=== PATIENT | female | born 1970 | race Caucasian/White ===

== ENCOUNTER → 2016-04-09 | Outpatient (CLI) | payer BC ==
[2016-04-09 14:10] LABS: Basophils # (auto) 0 uL; Basophils % (auto) 0.4 % (0.0-2.0); DEFINITIVE VIEW TRANSMISSION; Eosinophils # (auto) 0 uL; Hematocrit 40.3 % (36.0-46.0); Hemoglobin 12.3 g/dL (12.2-16.2); Lymphocytes # (auto) 0.7 uL; Lymphocytes % (auto) 7.3 % (10.0-50.0); Mean Corpuscular Hemoglobin 24.2 pg (28.0-32.0); Mean Corpuscular Hgb Conc. 30.5 g/dL (32.0-36.0); Mean Corpuscular Volume 79.5 fL (80.0-100.0); Mean Platelet Volume 8.4 fL (7.4-10.4); Monocytes # (auto) 0.3 uL; Monocytes % (auto) 2.6 % (0.0-12.0); Neutrophils # (auto) 8.8 uL; Neutrophils % (auto) 89.7 % (37.0-80.0); Platelet Count (auto) 390 10^3/uL (140-450); Red Cell Distribution Width 18.3 % (11.6-16.0); White Blood Cell 9.8 10^3/uL (4.4-10.8)
== END | disposition home or self-care (01) ==
LOC: LAB 13:34
PROVIDERS: ATTEND Internal Medicine
DX: C64.9 Malignant neoplasm of unspecified kidney, except renal pelvis (principal); D50.9 Iron deficiency anemia, unspecified; J45.909 Unspecified asthma, uncomplicated
CPT/HCPCS: 36415; 83540; 83550; 85025

== ENCOUNTER → 2016-09-17 | Outpatient (CLI) | payer BC ==
[2016-09-17 13:16] LABS: Basophils # (auto) 0 uL; Basophils % (auto) 0.5 % (0.0-2.0); CONDITION Y; DEFINITIVE SEE PRINTOUT; Eosinophils # (auto) 0.2 uL; Hemoglobin 11.4 g/dL (12.2-16.2); Lymphocytes # (auto) 1.2 uL; Lymphocytes % (auto) 18.7 % (10.0-50.0); Mean Corpuscular Hemoglobin 24.6 pg (28.0-32.0); Mean Corpuscular Hgb Conc. 31.8 g/dL (32.0-36.0); Mean Corpuscular Volume 77.3 fL (80.0-100.0); Mean Platelet Volume 8.4 fL (7.4-10.4); Monocytes # (auto) 0.7 uL; Monocytes % (auto) 10.8 % (0.0-12.0); Neutrophils # (auto) 4.3 uL; Platelet Count (auto) 302 10^3/uL (140-450); White Blood Cell 6.4 10^3/uL (4.4-10.8)
[2016-09-17 13:59] LABS: Albumin 3.8 g/dL (3.4-5.0); BUN/Creatinine Ratio 12.1; Bilirubin, Total 0.3 mg/dL (0.2-1.0); Calcium 8.7 mg/dL (8.5-10.1); Total Protein 8.3 g/dL (6.4-8.2)
== END | disposition home or self-care (01) ==
LOC: LAB 12:39
PROVIDERS: ATTEND Internal Medicine
DX: R63.5 Abnormal weight gain (principal); D50.9 Iron deficiency anemia, unspecified
CPT/HCPCS: 36415; 80053; 82728; 83001; 83036; 83540; 83550; 83615; 84439; 84443; 85025

== ENCOUNTER → 2019-07-14 | Outpatient (CLI) | payer BC ==
[2019-07-14 09:14] LABS: Basophils # (auto) 0 10 ^3/uL (0-0.2); Eosinophils # (auto) 0.1 10 ^3/uL (0-0.8); Eosinophils % (auto) 2.4 % (0.0-7.0); Hemoglobin 9.9 g/dL (12.2-16.2); Monocytes # (auto) 0.4 10 ^3/uL (0-1.3); White Blood Cell 5.5 10^3/uL (4.4-10.8)
[2019-07-14 09:16] LABS: Basophils % (auto) 0.7 % (0.0-2.0); Hematocrit 32.4 % (36.0-46.0); Lymphocytes # (auto) 0.9 10 ^3/uL (0.4-5.4); Lymphocytes % (auto) 17.2 % (10.0-50.0); Mean Corpuscular Hgb Conc. 30.4 g/dL (32.0-36.0); Mean Corpuscular Volume 69.3 fL (80.0-100.0); Monocytes % (auto) 7.9 % (0.0-12.0); Neutrophils # (auto) 3.9 10 ^3/uL (1.6-8.6); Neutrophils % (auto) 71.8 % (37.0-80.0); Platelet Count (auto) 203 10^3/uL (140-450); Red Blood Cells 4.68 10^6/uL (4.0-5.20); Red Cell Distribution Width 18.5 % (11.8-14.3)
[2019-07-14 09:22] LABS: Albumin 3.7 g/dL (3.4-5.0); Calcium 9.2 mg/dL (8.5-10.1); Potassium 3.6 mmol/L (3.5-5.1)
[2019-07-14 09:26] LABS: Urine Bacteria FEW /hpf (None Seen); Urine Blood Negative /uL (Negative); Urine Specific Gravity 1.012 (1.001-1.035); Urine WBC 1 /hpf (0 - 5)
[2019-07-14 09:29] LABS: BUN/Creatinine Ratio 12.3; Bilirubin, Total 0.7 mg/dL (0.2-1.0); Total Protein 8.4 g/dL (6.4-8.2)
== END | disposition home or self-care (01) ==
LOC: LAB 07:42
PROVIDERS: ATTEND Internal Medicine
DX: J45.998 Other asthma (principal); F32.9 Major depressive disorder, single episode, unspecified
CPT/HCPCS: 36415; 80053; 80061; 81001; 84439; 84443; 85025; 85652

== ENCOUNTER → 2019-08-31 | Outpatient (CLI) | payer BC | END | disposition home or self-care (01) | LOC: LAB 12:41 | PROVIDERS: ATTEND Internal Medicine | DX: Z20.828 Contact with and (suspected) exposure to other viral communicable diseases (principal) | CPT/HCPCS: 87635 ==

== ENCOUNTER → 2021-10-17 | Outpatient (CLI) | payer BC ==
[2021-10-17 13:21] LABS: Basophils # (auto) 0 10 ^3/uL (0-0.2); Eosinophils # (auto) 0.2 10 ^3/uL (0-0.8); Eosinophils % (auto) 2.5 % (0.0-7.0); Hemoglobin 8.2 g/dL (12.2-16.2); Lymphocytes # (auto) 1.2 10 ^3/uL (0.4-5.4); Mean Corpuscular Hgb Conc. 29.1 g/dL (32.0-36.0); Monocytes # (auto) 0.5 10 ^3/uL (0-1.3)
[2021-10-17 13:24] LABS: Basophils % (auto) 0.5 % (0.0-2.0); Lymphocytes % (auto) 20.3 % (10.0-50.0); Mean Corpuscular Hemoglobin 18.1 pg (28.0-32.0); Monocytes % (auto) 8.2 % (0.0-12.0); Neutrophils # (auto) 4.2 10 ^3/uL (1.6-8.6); Neutrophils % (auto) 68.5 % (37.0-80.0); Nucleated Red Blood Cells % 0.1 %; Red Blood Cells 4.51 10^6/uL (4.0-5.20); Red Cell Distribution Width 18.4 % (11.8-14.3); White Blood Cell 6.1 10^3/uL (4.4-10.8)
[2021-10-17 15:26] LABS: % Iron Saturation 3.2 % (15-50)
== END | disposition home or self-care (01) ==
LOC: LAB 11:51
PROVIDERS: ATTEND Internal Medicine
DX: D64.9 Anemia, unspecified (principal); R73.01 Impaired fasting glucose
CPT/HCPCS: 36415; 82607; 83036; 83540; 83550; 83615; 85025

== ENCOUNTER → 2021-12-25 | Outpatient (CLI) | payer BC | END | disposition home or self-care (01) | LOC: LAB 12:59 | PROVIDERS: ATTEND Nurse Practitioner Family | DX: N39.0 Urinary tract infection, site not specified (principal) | CPT/HCPCS: 87086 ==

== ENCOUNTER 2022-03-02 12:21 | Day surgery (SDC) | payer BC ==
[2022-02-28 09:09] LABS: Eosinophils # (auto) 0.2 10 ^3/uL (0-0.8); Mean Corpuscular Hemoglobin 18.2 pg (28.0-32.0); Mean Corpuscular Hgb Conc. 29.7 g/dL (32.0-36.0); Monocytes # (auto) 0.5 10 ^3/uL (0-1.3); Monocytes % (auto) 6.8 % (0.0-12.0); Neutrophils # (auto) 5.6 10 ^3/uL (1.6-8.6)
[2022-02-28 09:11] LABS: Basophils # (auto) 0 10 ^3/uL (0-0.2); Basophils % (auto) 0.7 % (0.0-2.0); Eosinophils % (auto) 2.1 % (0.0-7.0); Hematocrit 27.3 % (36.0-46.0); Hemoglobin 8.1 g/dL (12.2-16.2); Lymphocytes # (auto) 1.2 10 ^3/uL (0.4-5.4); Lymphocytes % (auto) 15.5 % (10.0-50.0); Mean Corpuscular Volume 61.2 fL (80.0-100.0); Neutrophils % (auto) 74.9 % (37.0-80.0); Red Blood Cells 4.46 10^6/uL (4.0-5.20); Red Cell Distribution Width 19.2 % (11.8-14.3); White Blood Cell 7.4 10^3/uL (4.4-10.8)
[2022-02-28 09:29] LABS: Albumin 3.9 g/dL (3.4-5.0); Calcium 9.2 mg/dL (8.5-10.1); Potassium 4.3 mmol/L (3.5-5.1)
[2022-02-28 09:32] LABS: INR 0.97 (0.9-1.15); Partial Thromboplastin Time 25.6 sec (24.6-33.4)
[2022-02-28 09:33] LABS: BUN/Creatinine Ratio 12.8; Bilirubin, Total 0.5 mg/dL (0.2-1.0)
[~2022-03-02] VITALS: Ht 175.3 cm; Wt 136.1 kg
[~2022-03-02 12:21] MED LIST: OME20GT PO; QUET50TA5 PO; VALS40TA2 PO
[2022-03-02] MEDS ORDERED: LIDOCAINE VISCOUS 2% 15ML UD ONE (12:34)
[2022-03-02] MEDS ORDERED: diphenhdrAMINE HCL 50 MG/1 ML VL ONE (12:34)
[2022-03-02] MEDS ORDERED: fentaNYL CITRATE 100 MCG/2 ML VL ONE (12:35)
[2022-03-02] MEDS ORDERED: MIDAZOLAM HCL 2MG/2ML 2ml VIAL (1mg/ml) ONE ×2 (12:35→12:47)
[2022-03-02] MEDS ORDERED: SODIUM CHLORIDE LOCK 0 ML ONE (12:36)
[2022-03-02] MEDS ORDERED: PROPOFOL 10 MG/ML 20 ML IV ONE ×3 (13:42→13:58)
[2022-03-02] MEDS ORDERED: LIDOCAINE 2%HCL (LOCAL ANESTH.) INJ 10ml MDV ONE (13:42)
[2022-03-02 14:35] VITALS: BP 120/91
== END 2022-03-02 14:46 | disposition home or self-care (01) ==
LOC: GI 12:21
PROVIDERS: ATTEND Internal Medicine Gastroenterology
DX: K21.9 Gastro-esophageal reflux disease without esophagitis (principal); D50.9 Iron deficiency anemia, unspecified; R10.13 Epigastric pain; K44.9 Diaphragmatic hernia without obstruction or gangrene; K31.7 Polyp of stomach and duodenum; K29.50 Unspecified chronic gastritis without bleeding; J45.909 Unspecified asthma, uncomplicated; F41.9 Anxiety disorder, unspecified; F32.9 Major depressive disorder, single episode, unspecified; Z98.890 Other specified postprocedural states; Z20.822 Contact with and (suspected) exposure to COVID-19
CPT/HCPCS: 36415; 43239; 80053; 85025; 85610; 85730; J2001; J2704; J7030; U0003; J2250

== ENCOUNTER → 2022-04-13 | Day surgery (SDC) | payer BC ==
[2022-04-11 09:52] LABS: Basophils # (auto) 0.1 10 ^3/uL (0-0.2); Eosinophils # (auto) 0.2 10 ^3/uL (0-0.8)
[2022-04-11 09:54] LABS: Basophils % (auto) 0.8 % (0.0-2.0); Hematocrit 27.6 % (36.0-46.0); Hemoglobin 8.2 g/dL (12.2-16.2); Lymphocytes # (auto) 1.3 10 ^3/uL (0.4-5.4); Lymphocytes % (auto) 19.5 % (10.0-50.0); Mean Corpuscular Hemoglobin 18.1 pg (28.0-32.0); Mean Corpuscular Hgb Conc. 29.9 g/dL (32.0-36.0); Mean Corpuscular Volume 60.5 fL (80.0-100.0); Monocytes # (auto) 0.7 10 ^3/uL (0-1.3); Monocytes % (auto) 9.5 % (0.0-12.0); Neutrophils # (auto) 4.6 10 ^3/uL (1.6-8.6); Neutrophils % (auto) 67.2 % (37.0-80.0); Nucleated Red Blood Cells % 0.1 %; Red Blood Cells 4.56 10^6/uL (4.0-5.20); White Blood Cell 6.9 10^3/uL (4.4-10.8)
[2022-04-11 10:06] LABS: INR 0.97 (0.9-1.15); Partial Thromboplastin Time 24.9 sec (24.6-33.4)
[2022-04-11 10:28] LABS: Albumin 3.7 g/dL (3.4-5.0); Calcium 9.1 mg/dL (8.5-10.1); Potassium 3.9 mmol/L (3.5-5.1)
[2022-04-11 10:31] LABS: BUN/Creatinine Ratio 15.6; Bilirubin, Total 0.5 mg/dL (0.2-1.0); Total Protein 8.2 g/dL (6.4-8.2)
[2022-04-11 10:37] LABS: Urine Bacteria FEW /hpf (None Seen); Urine Blood Negative /uL (Negative); Urine Specific Gravity 1.009 (1.001-1.035); Urine WBC 3 /hpf (0 - 5)
[~2022-04-13] VITALS: Ht 175.3 cm; Wt 136.1 kg
[~2022-04-13] MED LIST changes: +ALBUAER3 IN; +FLUT250M2 IN; +MEPERIDINE HCL (25 MG/ML) 1ML VIAL ONE; +MIDAZOLAM HCL 2MG/2ML 2ml VIAL (1mg/ml) ONE; +ONDANSETRON HCL 4 MG/2 ML VIAL IV PRN; +PANT40TA2 PO; +PROPOFOL 10 MG/ML 20 ML IV ONE; +fentaNYL CITRATE 100 MCG/2 ML VL ONE
[2022-04-13 11:36] VITALS: BP 110/51
== END | disposition home or self-care (01) ==
LOC: GI 09:25
PROVIDERS: ATTEND Internal Medicine Gastroenterology
DX: D50.9 Iron deficiency anemia, unspecified (principal); K62.1 Rectal polyp; K63.5 Polyp of colon; K64.8 Other hemorrhoids; K57.30 Diverticulosis of large intestine without perforation or abscess without bleeding; K59.39 Other megacolon; D64.9 Anemia, unspecified; K21.9 Gastro-esophageal reflux disease without esophagitis; E66.9 Obesity, unspecified; Z68.41 Body mass index [BMI] 40.0-44.9, adult; F32.A Depression, unspecified; J45.909 Unspecified asthma, uncomplicated; Z88.0 Allergy status to penicillin; Z91.040 Latex allergy status; Z85.528 Personal history of other malignant neoplasm of kidney; Z98.51 Tubal ligation status; Z79.899 Other long term (current) drug therapy; Z98.890 Other specified postprocedural states; Z20.822 Contact with and (suspected) exposure to COVID-19
CPT/HCPCS: 36415; 45380; 80053; 81001; 85025; 85610; 85730; 88305; J2175; J2250; J2704; J3010; J7030; U0003

== ENCOUNTER → 2022-06-07 | Outpatient (CLI) | payer BC ==
[~2022-06-07] MED LIST changes: -MEPERIDINE HCL (25 MG/ML) 1ML VIAL ONE; -MIDAZOLAM HCL 2MG/2ML 2ml VIAL (1mg/ml) ONE; -ONDANSETRON HCL 4 MG/2 ML VIAL IV PRN; -PROPOFOL 10 MG/ML 20 ML IV ONE; -fentaNYL CITRATE 100 MCG/2 ML VL ONE
[2022-06-07 13:45] LABS: Hemoglobin 11.9 g/dL (12.2-16.2); White Blood Cell 7.5 10^3/uL (4.4-10.8)
[2022-06-07 13:47] LABS: Basophils # (auto) 0.1 10 ^3/uL (0-0.2); Basophils % (auto) 1.2 % (0.0-2.0); Eosinophils # (auto) 0.2 10 ^3/uL (0-0.8); Eosinophils % (auto) 2.8 % (0.0-7.0); Hematocrit 37.8 % (36.0-46.0); Lymphocytes # (auto) 1.4 10 ^3/uL (0.4-5.4); Lymphocytes % (auto) 18.1 % (10.0-50.0); Mean Corpuscular Hemoglobin 23.4 pg (28.0-32.0); Mean Corpuscular Hgb Conc. 31.5 g/dL (32.0-36.0); Mean Corpuscular Volume 74.1 fL (80.0-100.0); Monocytes # (auto) 0.7 10 ^3/uL (0-1.3); Monocytes % (auto) 8.9 % (0.0-12.0); Neutrophils # (auto) 5.2 10 ^3/uL (1.6-8.6); Nucleated Red Blood Cells % 0.2 %
[2022-06-07 14:01] LABS: Red Cell Distribution Width 31.5 % (11.8-14.3)
[2022-06-07 14:08] LABS: Albumin 3.7 g/dL (3.4-5.0); Calcium 9.3 mg/dL (8.5-10.1); Potassium 3.9 mmol/L (3.5-5.1)
[2022-06-07 14:13] LABS: BUN/Creatinine Ratio 11.1 (10.0-20.0); Bilirubin, Total 0.5 mg/dL (0.2-1.0); Total Protein 7.8 g/dL (6.4-8.2)
[2022-06-07 14:18] LABS: Ferritin 145.7 ng/mL (10-322); Folate (Folic Acid) 13.15 ng/mL (5.38-24)
== END | disposition home or self-care (01) ==
LOC: LAB 13:12
PROVIDERS: ATTEND Internal Medicine
DX: D50.0 Iron deficiency anemia secondary to blood loss (chronic) (principal); Z88.0 Allergy status to penicillin
CPT/HCPCS: 36415; 80053; 82607; 82728; 82746; 83540; 83550; 83615; 85025

== ENCOUNTER → 2023-03-19 | Outpatient (CLI) | payer BC ==
[2023-03-19 08:07] LABS: Basophils # (auto) 0 10 ^3/uL (0-0.2); Basophils % (auto) 0.8 % (0.0-2.0); Eosinophils # (auto) 0.1 10 ^3/uL (0-0.8); Eosinophils % (auto) 2.6 % (0.0-7.0); Hematocrit 41.7 % (36.0-46.0); Hemoglobin 13.6 g/dL (12.2-16.2); Lymphocytes # (auto) 0.8 10 ^3/uL (0.4-5.4); Mean Corpuscular Hemoglobin 29.1 pg (28.0-32.0); Mean Corpuscular Hgb Conc. 32.7 g/dL (32.0-36.0); Mean Corpuscular Volume 88.9 fL (80.0-100.0); Monocytes # (auto) 0.5 10 ^3/uL (0-1.3); Monocytes % (auto) 9.8 % (0.0-12.0); Neutrophils % (auto) 71.8 % (37.0-80.0); Nucleated Red Blood Cells % 0.1 %; Red Cell Distribution Width 16.3 % (11.8-14.3); White Blood Cell 5.6 10^3/uL (4.4-10.8)
[2023-03-19 08:34] LABS: Creatinine, Urine 97.39 mg/dL (30.0-125.0)
[2023-03-19 08:35] LABS: Alanine Aminotransferase 105 U/L (7-40); Albumin 4.7 g/dL (3.2-4.8); Alkaline Phosphatase 88 U/L (46-116); Calcium 9.8 mg/dL (8.5-10.1); Carbon Dioxide 26 mmol/L (20-30); Chloride 104 mmol/L (98-107); Triglycerides 159 mg/dL (< 150)
[2023-03-19 08:36] LABS: Anion Gap 8 (5-15); Aspartate Aminotransferase 104 U/L (13-40); Bilirubin, Total 1.4 mg/dL (0.2-1.0); Blood Urea Nitrogen 7 mg/dL (9-23); Cholesterol 208 mg/dL (< 200); Glucose 124 mg/dL (74-106); HDL Cholesterol 42 mg/dL (40-59); LDL Cholesterol 151 mg/dL (< 100); Potassium 4.4 mmol/L (3.5-5.1); Sodium 138 mmol/L (136-145); Total Protein 7.9 g/dL (5.7-8.2)
== END | disposition home or self-care (01) ==
LOC: LAB 07:47
PROVIDERS: ATTEND Internal Medicine
DX: N18.30 Chronic kidney disease, stage 3 unspecified (principal); D64.9 Anemia, unspecified; R73.03 Prediabetes
CPT/HCPCS: 36415; 80053; 80061; 82043; 82570; 83036; 84443; 85025

== ENCOUNTER → 2023-03-22 | Outpatient (CLI) | payer BC ==
[2023-03-22 09:02] LABS: Albumin 4.9 g/dL (3.2-4.8); Bilirubin, Direct 0.4 mg/dL (<0.3); Bilirubin, Total 0.8 mg/dL (0.2-1.0)
[2023-03-22 09:03] LABS: Total Protein 8.1 g/dL (5.7-8.2)
== END | disposition home or self-care (01) ==
LOC: LAB 08:24
PROVIDERS: ATTEND Internal Medicine
DX: R79.89 Other specified abnormal findings of blood chemistry (principal)
CPT/HCPCS: 36415; 80074; 80076

== ENCOUNTER → 2023-10-16 | Outpatient (CLI) | payer BC | END | disposition home or self-care (01) | LOC: XYW 08:59 | PROVIDERS: ATTEND Internal Medicine | DX: I51.89 Other ill-defined heart diseases (principal); R60.0 Localized edema | CPT/HCPCS: 93306 ==

== ENCOUNTER → 2024-04-09 | Outpatient (CLI) | payer BC ==
[2024-04-09 08:48] LABS: Basophils # (auto) 0 10 ^3/uL (0-0.2); Basophils % (auto) 0.8 % (0.0-2.0); Eosinophils # (auto) 0.1 10 ^3/uL (0-0.8); Eosinophils % (auto) 2.5 % (0.0-7.0); Hematocrit 34.3 % (36.0-46.0); Hemoglobin 11.3 g/dL (12.2-16.2); Lymphocytes # (auto) 0.8 10 ^3/uL (0.4-5.4); Lymphocytes % (auto) 16.7 % (10.0-50.0); Mean Corpuscular Hemoglobin 30.5 pg (28.0-32.0); Mean Corpuscular Volume 92.5 fL (80.0-100.0); Monocytes # (auto) 0.5 10 ^3/uL (0-1.3); Monocytes % (auto) 9.6 % (0.0-12.0); Neutrophils # (auto) 3.4 10 ^3/uL (1.6-8.6); Neutrophils % (auto) 70.4 % (37.0-80.0); Nucleated Red Blood Cells % 0.1 %; Platelet Count (auto) 201 10^3/uL (140-450); Red Blood Cells 3.71 10^6/uL (4.0-5.20); Red Cell Distribution Width 15.5 % (11.8-14.3); White Blood Cell 4.9 10^3/uL (4.4-10.8)
[2024-04-09 09:39] LABS: Creatinine, Urine 78.01 mg/dL (30.0-125.0)
[2024-04-09 11:30] LABS: Alanine Aminotransferase 37 U/L (7-40); Alkaline Phosphatase 114 U/L (46-116); Anion Gap 11 (5-15); BUN/Creatinine Ratio 7.6 (10.0-20.0); Calcium 10.3 mg/dL (8.7-10.4); Carbon Dioxide 26 mmol/L (20-31); Chloride 100 mmol/L (98-107); Potassium 3.9 mmol/L (3.5-5.1); Sodium 137 mmol/L (136-145)
[2024-04-09 11:31] LABS: Blood Urea Nitrogen 8 mg/dL (9-23); Glucose 137 mg/dL (74-106)
[2024-04-09 11:32] LABS: Albumin 4.8 g/dL (3.2-4.8)
[2024-04-09 11:47] LABS: Aspartate Aminotransferase 68 U/L (13-40); Bilirubin, Total 2.1 mg/dL (0.2-1.0)
[2024-04-09 13:01] LABS: Cholesterol 239 mg/dL (< 200); HDL Cholesterol 28 mg/dL (40-59); LDL Cholesterol 195 mg/dL (< 100); Triglycerides 190 mg/dL (< 150)
== END | disposition home or self-care (01) ==
LOC: LAB 08:19
PROVIDERS: ATTEND Internal Medicine
DX: E78.5 Hyperlipidemia, unspecified (principal); R06.02 Shortness of breath; L03.116 Cellulitis of left lower limb; R73.03 Prediabetes
CPT/HCPCS: 36415; 80053; 80061; 82043; 82306; 82570; 82607; 83036; 83880; 85025; 85379

== ENCOUNTER → 2024-04-15 | Outpatient (CLI) | payer BC ==
[2024-04-15 09:26] LABS: Alkaline Phosphatase 110 U/L (46-116); Anion Gap 12 (5-15); BUN/Creatinine Ratio 12.3 (10.0-20.0); Blood Urea Nitrogen 16 mg/dL (9-23); Carbon Dioxide 26 mmol/L (20-31); Potassium 4.1 mmol/L (3.5-5.1)
[2024-04-15 09:27] LABS: Total Protein 8.2 g/dL (5.7-8.2)
[2024-04-15 09:34] LABS: Alanine Aminotransferase 40 U/L (7-40); Albumin 4.9 g/dL (3.2-4.8); Aspartate Aminotransferase 94 U/L (13-40); Bilirubin, Total 1.3 mg/dL (0.2-1.0); Calcium 10.4 mg/dL (8.7-10.4); Chloride 97 mmol/L (98-107); Glucose 139 mg/dL (74-106); Sodium 135 mmol/L (136-145)
== END | disposition home or self-care (01) ==
LOC: LAB 08:33
PROVIDERS: ATTEND Internal Medicine
DX: R79.89 Other specified abnormal findings of blood chemistry (principal)
CPT/HCPCS: 36415; 80053

== ENCOUNTER → 2024-06-17 | Outpatient (CLI) | payer BC | END | disposition home or self-care (01) | LOC: LAB 14:30 | PROVIDERS: ATTEND Internal Medicine | DX: R06.02 Shortness of breath (principal); R60.0 Localized edema | CPT/HCPCS: 83880 ==

== ENCOUNTER 2024-09-15 07:03 | Outpatient (CLI) | payer BC ==
[~2024-09-15] VITALS: Ht 175.3 cm; Wt 149.7 kg
[2024-09-15] MEDS: REGADENOSON 0.4 MG/5 ML SYRG IV ONE ×2 (09:48→09:55)
--- NOTE | 2024-09-17 10:59 | DVHSR ---
APPROVED REPORT Exam: Nuclear Stress Test Indication: SOB BMI: 0 Medical History Medical History: EF 60%, HTN, OBESITY, LVH Stress Test Details Stress Test: Pharmacologic stress testing performed using 0.4 mg of regadenoson per 5 mL given IV ov er 10 seconds. HR Resting HR: 93 bpmMax Heart Rate (APMHR): 164.018938 bpm Max HR Achieved: 104 bpmTarget HR (85% APMHR): 139.994149 bpm % of APMHR: 63.41 Recovery HR: 97 bpm BP Resting BP: 145/77 mmHg Recovery BP: 129/63 mmHg ECG Resting ECG: Sinus Rhythm Clinical Reason for Termination: Completed protocol Stress ECG Conclusion lvef 67% normal perfusion scan limited quality study NM EXAM: Myocardial Perfusion REST/STRESS Imaging Protocol: Rest Tc-99m/Stress Tc-99m 1 day Resting Data Rest SPECT myocardial perfusion imaging was performed in supine position 60 minutes following the int ravenous injection of 11.0 mCi of Tc-99m Sestamibi. Time of rest injection: 07:45 Date: 09/15/2024 Time of rest imagin:45 Date: 09/15/2024 Administration Route: IV Administration Site: Left Arm Pharmacologic Stress Pharmacologic stress test was performed by injecting Regadenoson 0.4 mg IV push followed by the intra venous injection of 33.0 mCi of Tc-99m Sestamibi. Time of stress injection: 09:48 Date: 09/15/2024 Time of stress imagin:48 Date: 09/15/2024 Administration Route: IV Administration Site: Left Arm Gated Stress SPECT was performed 60 minutes after stress injection. The images were gated to evaluate regional wall motion and calculate left ventricular ejection fracti on. Stress only was performed in the Supine position. Nuclear Conclusion Nuclear Findings: negative for ischemia lvef 67% normal perfusion scan limited quality study
== END 2024-09-15 17:00 | disposition home or self-care (01) ==
LOC: XYW 07:03
PROVIDERS: ATTEND Internal Medicine
DX: R06.02 Shortness of breath (principal); I10 Essential (primary) hypertension; E66.9 Obesity, unspecified
CPT/HCPCS: 78452; 93017; A9500; J2785

== ENCOUNTER 2024-11-18 07:47 | Inpatient (IN) | payer BC ==
[2024-11-16 14:46] LABS: Hemoglobin 9.6 g/dL (12.2-16.2)
[2024-11-16 14:48] LABS: Hematocrit 30.0 % (36.0-46.0); Mean Corpuscular Hemoglobin 26.7 pg (28.0-32.0); Mean Corpuscular Volume 83.3 fL (80.0-100.0); Nucleated Red Blood Cells % 0.1 %
[2024-11-16 14:59] LABS: INR 1.19 (0.9-1.15); Partial Thromboplastin Time 27.7 SEC (24.5-34.5); Prothrombin Time 12.4 sec (9.3-11.8)
[2024-11-16 15:14] LABS: Urine Protein, UAD TRACE (Negative)
[2024-11-16 15:34] LABS: Alanine Aminotransferase 17 U/L (7-40); Albumin 4.3 g/dL (3.2-4.8); Alkaline Phosphatase 103 U/L (46-116); Anion Gap 12 (5-15); BUN/Creatinine Ratio 6.0 (10.0-20.0); Calcium 9.8 mg/dL (8.7-10.4); Carbon Dioxide 25 mmol/L (20-31); Chloride 101 mmol/L (98-107); Glucose 105 mg/dL (74-106); Potassium 3.8 mmol/L (3.5-5.1); Sodium 138 mmol/L (136-145); Total Protein 8.1 g/dL (5.7-8.2)
[2024-11-16 15:35] LABS: Bilirubin, Total 2.1 mg/dL (0.2-1.0); Blood Urea Nitrogen 6 mg/dL (9-23)
[~2024-11-18] VITALS: Ht 175.3 cm; Wt 145.2 kg
[2024-11-18] MEDS ORDERED: HYDROmorphone HCL 2 MG/ML VL/or syr ONE (08:08)
[2024-11-18] MEDS ORDERED: MIDAZOLAM HCL 2MG/2ML 2ml VIAL (1mg/ml) ONE (08:08)
[2024-11-18] MEDS ORDERED: fentaNYL CITRATE 100 MCG/2 ML VL ONE (08:08)
[2024-11-18] MEDS ORDERED: ROCURONIUM 10MG/ML 10ML VIAL IV ONE (08:11)
[2024-11-18] MEDS ORDERED: PROPOFOL 10 MG/ML 20 ML IV ONE (08:11)
[2024-11-18] MEDS ORDERED: GLYCOPYRROLATE 0.2 MG/ML 1ML VIAL ONE (08:11)
[2024-11-18] MEDS ORDERED: LIDOCAINE 2% (LOCAL ANESTH.) PF 5ml SDV ONE (08:11)
[2024-11-18] MEDS ORDERED: KETOROLAC TROMETH 30 MG/ML 1ML VIAL ONE (08:11)
[2024-11-18] MEDS: FAMOTIDINE (10MG/ML) 2ML VL IV ONE (09:47)
[2024-11-18] MEDS: BUPIVACAINE 0.5% P/F INJ 10 ML VIAL ONE (10:42)
[2024-11-18] MEDS: LIDOCAINE W/ EPINEPHRINE 1% 20ML VIAL ONE (10:43)
[2024-11-18] MEDS ORDERED: HYDROCORTISONE SOD SUCC 100 MG/2ML INJ VIAL ONE (10:46)
[2024-11-18] MEDS ORDERED: SUGAMMADEX 200mg/2ml Vial (100MG/ML) IV ONE (10:46)
[2024-11-18 11:13] VITALS: PULSE 95; RESP 12; O2SAT 98
[2024-11-18] MEDS ORDERED: HYDROmorphone HCL 2 MG/ML VL/or syr IV PRN (11:15)
[2024-11-18] MEDS ORDERED: D5W/SOD CHL 0.45%/KCL 20MEQ 1,000 ML IV SCH (11:15)
--- NOTE | 2024-11-18 11:29 | DVHOP ---
DATE OF SURGERY: 11/18/2024 PREOPERATIVE DIAGNOSES: * Cholelithiasis. * Chronic cholecystitis. * Biliary colic. * Morbid obesity. SURGEON: Ceasar Perez MD MINESWEEPING OFFICER: Sg Pearce NP ANESTHESIA: General endotracheal, Dr. Zelaya. POSTOPERATIVE DIAGNOSES: * Morbid obesity. * Cholelithiasis. * Chronic cholecystitis. * Abdominal adhesions. * Liver cirrhosis. DESCRIPTION OF PROCEDURE: Under general endotracheal anesthesia with the patient's skin prepped and draped, supraumbilical incision was made and Veress needle inserted by the hanging drop technique to establish pneumoperitoneum to 15 mmHg pressure by insufflation with carbon dioxide. With the abdomen fully distended to 15 mmHg pressure, the needle was removed and replaced with a 5 mm trocar port. Due to the patient's morbid obesity, extra-length ports had to be used to gain access to the peritoneal cavity. Under direct vision, an additional 5 mm port and 10 mm port were inserted through the right lateral abdomen at the level of the umbilicus and through the subxiphoid skin in the midline respectively. Instrumentation was introduced. Laparoscopy was performed revealing cirrhotic liver in both lobes of the liver that was documented by intraoperative photography. The patient's gallbladder was affected by chronic cholecystitis. It was placed on tension. Cystic duct and cystic artery were identified and circumferentially dissected and skeletonized, traced into the hepatocystic triangle so as to minimize the potential for inadvertent injury to the common bile duct. Subsequently, the cystic duct and cystic artery were divided between metallic clips close to the liver, again attempting to avoid any inadvertent injury to the common bile duct. Following division of the cystic duct and cystic artery, the gallbladder was resected from its liver bed by electrocautery and traction. The fully mobilized gallbladder was then retrieved from the peritoneal cavity. Subhepatic space was irrigated. Irrigant was aspirated. A 10 mm Adan-Zhang drain was placed underneath the right lobe of the liver and exteriorized through the 5 mm port site on the right flank, secured with a 2-0 nylon suture. Instrumentation was withdrawn. Hemostasis was meticulously accomplished and found to be complete at the termination of procedure. There was no evidence of bleeding from either the liver bed or from the port sites. The abdomen was desufflated and wounds closed using Monocryl sutures, Dermabond glue, and Steri-Strips. The patient remained stable throughout the procedure and left the operating room following an accurate needle and sponge count. The patient's Luke was thoroughly informed at [phone]. The patient's was also informed of the fact that the patient has chronic cirrhotic changes in both lobes of the liver which were documented by intraoperative photography. MD LINDA Kuo/YOLIS TID: [id number] RECEIPT: [id number]
[2024-11-18] MEDS: ONDANSETRON HCL 4 MG/2 ML VIAL IV ONE (11:35)
[2024-11-18] MEDS: ONDANSETRON HCL 4 MG/2 ML VIAL ONE (11:37)
[2024-11-18] MEDS: ACETAMINOPHEN IV 1000 MG/100ML (10MG/ML) IV ONE (11:39)
[2024-11-18] MEDS: ACETAMINOPHEN IV 100 ML IV ONE (11:42)
[2024-11-18] MEDS: HYDROmorphone HCL 2 MG/ML VL/or syr IV PRN (11:57)
[2024-11-18] MEDS: HYDROmorphone HCL 2 MG/ML VL/or syr ONE (12:20)
[2024-11-18] MEDS ORDERED: NITROGLYCERIN 0.4 MG SL TAB SL PRN (12:30)
[2024-11-18] MEDS ORDERED: MORPHINE SULFATE INJ 2 MG/ml SYRG IV PRN (12:30)
[2024-11-18] MEDS: hydrALAZINE HCL 20 MG/ML VL IV PRN (12:40)
[2024-11-18] MEDS: hydrALAZINE HCL 20 MG/ML VL ONE (12:40)
--- NOTE | 2024-11-18 13:06 | DVHHP2 ---
Review of Systems Allergies: Coded Allergies: Latex (Unverified Allergy, Unknown, 09/15/24) RASH Penicillins (Unverified Allergy, Unknown, 09/15/24) Medications Current Medications Medications Dose Ordered Sig/Fara Route Start Time Stop Time Status Last Admin Dose Admin Potassium Chloride/Dextrose/ Sod Cl 1,000 ml @ 100 mls/hr Q10H IV 11/18/24 11:15 Levofloxacin/ Dextrose 100 ml @ 100 mls/hr DAILY IV 11/19/24 10:00 Hydromorphone HCl 1 mg Q3HPRN PRN IV 11/18/24 11:15 Acetaminophen/ Codeine Phosphate 1 tab Q4HP PRN PO 11/18/24 11:15 Hydralazine HCl 10 mg Q6HP PRN IV 11/18/24 12:30 11/18/24 12:40 10 MG Nitroglycerin 0.4 mg Q5MINP PRN SL 11/18/24 12:30 Morphine Sulfate 2 mg Q30M PRN IV 11/18/24 12:30 Exam Vital Signs Vital Signs Date Time Temp Pulse Resp B/P (MAP) Pulse Ox O2 Delivery O2 Flow Rate FiO2 11/18/24 12:40 173/96 11/18/24 12:12 91 14 11/18/24 11:13 Mask 6.0 98 11/18/24 11:13 98 11/18/24 08:10 98.0 98.0 Labs/Xrays Labs Test 11/16/24 14:35 Range/Units White Blood Count 6.0 4.4-10.8 10^3/uL Red Blood Count 3.60 L 4.0-5.20 10^6/uL Hemoglobin 9.6 L 12.2-16.2 g/dL Hematocrit 30.0 L 36.0-46.0 % Mean Corpuscular Volume 83.3 80.0-100.0 fL Mean Corpuscular Hemoglobin 26.7 L 28.0-32.0 pg Mean Corpuscular Hemoglobin Concent 32.1 32.0-36.0 g/dL Red Cell Distribution Width 18.0 H 11.8-14.3 % Platelet Count 206 140-450 10^3/uL Mean Platelet Volume 7.3 6.9-10.8 fL Neutrophils (%) (Auto) 68.1 37.0-80.0 % Lymphocytes (%) (Auto) 17.0 10.0-50.0 % Monocytes (%) (Auto) 11.5 0.0-12.0 % Eosinophils (%) (Auto) 2.5 0.0-7.0 % Basophils (%) (Auto) 0.9 0.0-2.0 % Neutrophils # (Auto) 4.1 1.6-8.6 10 ^3/uL Lymphocytes # (Auto) 1.0 0.4-5.4 10 ^3/uL Monocytes # (Auto) 0.7 0-1.3 10 ^3/uL Eosinophils # (Auto) 0.2 0-0.8 10 ^3/uL Basophils # (Auto) 0.1 0-0.2 10 ^3/uL Nucleated Red Blood Cells 0.1 % Prothrombin Time 12.4 H 9.3-11.8 sec Prothrombin Time INR 1.19 H 0.9-1.15 Activated Partial Thromboplast Time 27.7 24.5-34.5 SEC Urine Color Yellow Yellow Urine Clarity Turbid H Clear Urine pH 6.5 5.0-9.0 Urine Specific Sikes 1.007 1.001-1.035 Urine Protein Trace H Negative Urine Ketones Negative Negative Urine Blood Negative Negative /uL Urine Nitrite Negative Negative Urine Bilirubin Negative Negative Urine Urobilinogen 4 H Negative mg/dL Urine Leukocyte Esterase 1+ Negative /uL Urine RBC 1 0 - 4 /hpf Urine Microscopic WBC 10 H 0-5 /HPF Urine Squamous Epithelial Cells Mod <5 /hpf Urine Bacteria Few H None Seen /hpf Urine Glucose Normal Normal mg/dL Sodium Level 138 136-145 mmol/L Potassium Level 3.8 3.5-5.1 mmol/L Chloride Level 101 98-107 mmol/L Carbon Dioxide Level 25 20-31 mmol/L Anion Gap 12 5-15 Blood Urea Nitrogen 6 L 9-23 mg/dL Creatinine 1.00 0.550-1.02 mg/dL Glomerular Filtration Rate Calc 66 >90 mL/min BUN/Creatinine Ratio 6.0 L 10.0-20.0 Serum Glucose 105 74-106 mg/dL Calcium Level 9.8 8.7-10.4 mg/dL Total Bilirubin 2.1 H 0.2-1.0 mg/dL Aspartate Amino Transferase (AST) 49 H 13-40 U/L Alanine Aminotransferase (ALT) 17 7-40 U/L Alkaline Phosphatase 103 46-116 U/L Total Protein 8.1 5.7-8.2 g/dL Albumin 4.3 3.2-4.8 g/dL SEPSIS Sepsis Screen Physician Orders Bupivacaine Hcl (Marcaine) (11/18/24 08:55) To Pacu For Recovery (11/18/24 11:05) Oxygen Via Cool Mist Mask (11/18/24 11:05) Abdominal Binder (11/18/24 11:05) Wilfrido To Bulb Suction (11/18/24 11:05) Clear Liq Diet (11/18/24 Lunch) Sequential Compression Device (11/18/24 11:05) Bilirubin, Total (11/19/24 04:00) Page Hospitalist For Admission (11/18/24 11:05) Call/Page Hospitalist/Atten Fo (11/18/24 11:05) D5w/Sod Chl 0.45%/Kcl 20meq (11/18/24 11:15) Levofloxacin 500mg (Levaquin 500mg/ 100m (11/19/24 10:00) Hydromorphone Injection (Dilaudid Inject (11/18/24 11:15) Acetaminophen/Codeine Tablet (Tylenol W/ (11/18/24 11:15) Oxygen By Face Mask (11/18/24 11:20) Resident Care Assistant (11/18/24 11:20) Notify Anesth. For Changes: (11/18/24 11:20) Pulse Ox Assessment (11/18/24 11:20) May Have Head Of Bed Up (11/18/24 11:20) Continue Present Iv (11/18/24 11:20) Discharge To Room Per Criteria (11/18/24 11:20) Hydralazine Injection (Apresoline Inject (11/18/24 12:30) Admit (11/18/24 12:23) Oxygen By Nasal Cannula (11/18/24 12:23) Nitroglycerin Sublingual (Ntrostat Subli (11/18/24 12:30) Morphine Sulfate Injection (11/18/24 12:30) Stat Ekg For Chest Pain (11/18/24 12:23) Notify Md Of Changes From Base (11/18/24 12:23) Vital Signs Date Time Temp Pulse Resp B/P (MAP) Pulse Ox O2 Delivery O2 Flow Rate FiO2 11/18/24 12:40 173/96 11/18/24 12:12 91 14 172/98 11/18/24 11:57 92 13 167/90 11/18/24 11:13 Mask 6.0 98 11/18/24 11:13 95 12 98 Mask 6.0 11/18/24 08:10 98.0 100 20 157/87 (110) 96 98.0 Medications Medications Dose Ordered Sig/Fara Route Start Time Stop Time Status Last Admin Dose Admin Acetaminophen 1,000 mg ONCE ONCE IV 11/18/24 11:30 11/18/24 12:00 DC 11/18/24 11:39 1,000 MG Bupivacaine HCl 10 ml STK-MED ONCE .ROUTE 11/18/24 08:55 11/18/24 08:51 DC 11/18/24 10:42 10 ML Ephedrine Sulfate 25 mg ONCE ONCE IM 11/18/24 11:34 11/18/24 12:00 DC 11/18/24 12:08 25 MG Hydralazine HCl 10 mg Q6HP PRN IV 11/18/24 12:30 11/18/24 12:40 10 MG Hydromorphone HCl 0.5 mg Q10M PRN IV 11/18/24 11:30 11/18/24 12:11 DC 11/18/24 12:12 0.5 MG Lidocaine/ Epinephrine 20 ml STK-MED ONCE .ROUTE 11/18/24 08:55 11/18/24 08:52 DC 11/18/24 10:43 10 ML Ondansetron HCl 4 mg ONCE ONCE IV 11/18/24 11:33 11/18/24 12:00 DC 11/18/24 11:35 4 MG Assessment/Plan Assessment/Plan see dictated note Plan discussed with: Patient My Orders Orders - REBECCA MCCLURE MD Procedure Category Date Status Time Hydralazine Injection PHA 11/18/24 In Process (Apresoline Inject 12:30 Admit ADMIT 11/18/24 Transmitted 12:23 Oxygen By Nasal RT 11/18/24 Transmitted Cannula 12:23 Nitroglycerin PHA 11/18/24 In Process Sublingual (Ntrostat 12:30 Morphine Sulfate PHA 11/18/24 In Process Injection 12:30 Stat Ekg For Chest XIOMARA 11/18/24 In Process Pain 12:23 Notify Md Of Changes XIOMARA 11/18/24 In Process From Base 12:23 Date of Service: Nov 18, 2024 Billing Provider: REBECCA MCCLURE MD Common Visit Codes: [id number] INP/OBS CARE (HIGH) REBECCA MCCLURE MD Nov 18, 2024 13:06
[2024-11-18] MEDS ORDERED: ALBUTEROL SULF 2.5 MG/0.5ML(0.5%) NEB SOLN NEB PRN (13:15)
--- NOTE | 2024-11-18 13:24 | DVHHP ---
ADMIT DATE: 11/18/2024 HISTORY OF PRESENT ILLNESS: The patient is a 54-year-old lady who is admitted after she underwent laparoscopic cholecystectomy for cholelithiasis and chronic cholecystitis. The patient at this time denies any significant pain. No history of chest pain, no shortness of breath, no nausea or vomiting. REVIEW OF SYSTEMS: Review of rest of the systems is otherwise currently negative. PAST MEDICAL HISTORY: Significant for hepatic steatosis, cellulitis of the lower extremity, hypertension, anxiety, depression, GERD as well as asthma. MEDICATIONS: The patient takes omeprazole, Seroquel, valsartan and Effexor. ALLERGIES: LATEX AND PENICILLIN. SOCIAL HISTORY: Denies smoking or alcohol. FAMILY HISTORY: Negative. PHYSICAL EXAMINATION: GENERAL: The patient is awake, alert. VITAL SIGNS: Temperature of 98, pulse 92 per minute, blood pressure 157/87. SHEENT: Unremarkable. NECK: There is no JVD. LUNGS: Equal bilaterally. No added sounds. CARDIOVASCULAR: S1 and S2 are regular. No murmurs. ABDOMEN: Soft. Bowel sounds are hypoactive. There is a CHARLES drain in place. EXTREMITIES: There is pedal edema of 1+. Left lower extremity, there is swelling and redness of the left leg. MUSCULOSKELETAL: Normal. NEUROLOGIC: Nonfocal. ASSESSMENT AND PLAN: * Morbid obesity. * Hypertension for which she will continue on Diovan. * Likely left leg cellulitis for which she will be placed on IV Ancef and a Doppler will be obtained. * Hypertension. * Anxiety/depression. * Anemia. * Status post laparoscopic cholecystectomy for cholelithiasis and chronic cholecystitis for which she will be placed on pain medications and IV fluids. MD EJ Sexton/YVES TID: [id number] RECEIPT: [id number]
[2024-11-18] MEDS: ceFAZolin 1GM/50ML 50 ML IV SCH (14:55)
[2024-11-18 15:00] VITALS: BP 137/74; PULSE 93; RESP 14; O2SAT 98
--- NOTE | 2024-11-18 15:01 | DVH ---
Bilateral lower extremity venous duplex Clinical History: edema Comparison: None Findings: Duplex Doppler evaluation of the deep venous systems of both lower extremities from the common femora l veins to the popliteal veins including color Doppler and spectral/pulsed waveform analysis was perf ormed. RIGHT SIDE: The common femoral vein demonstrates appropriate compressibility and waveform variability. There is compressibility/patency of the great saphenous vein at the proximal thigh. The femoral vein demonstrates appropriate compressibility and waveform variability. The deep femoral vein demonstrates appropriate compressibility and waveform variability. The popliteal vein demonstrates appropriate compressibility and waveform variability. There is normal compressibility at the tibioperoneal trunk. LEFT SIDE: The common femoral vein demonstrates appropriate compressibility and waveform variability. There is compressibility/patency of the great saphenous vein at the proximal thigh. The femoral vein demonstrates appropriate compressibility and waveform variability. The deep femoral vein demonstrates appropriate compressibility and waveform variability. The popliteal vein demonstrates appropriate compressibility and waveform variability. Impression: No right or left femoropopliteal venous thrombosis.
[2024-11-18 16:50] VITALS: BP 142/79; PULSE 96; RESP 16; TEMP 98.2; O2SAT 92
[2024-11-18] MEDS: D5W/SOD CHL 0.45%/KCL 20MEQ 1,000 ML IV SCH (17:15)
[2024-11-18] MEDS: ACETAMINOPHEN/CODEINE#3 (300/30mg) TAB PO PRN (18:39)
[2024-11-18 20:00] VITALS: PULSE 88; RESP 18; O2SAT 95
[2024-11-18 20:15] VITALS: O2SAT 94
[2024-11-18] MEDS: ONDANSETRON HCL 4 MG/2 ML VIAL IV PRN (20:55)
[2024-11-18 21:00] VITALS: BP 148/90; PULSE 88; RESP 17; O2SAT 95
[2024-11-18] MEDS: ALPRAZolam 0.25 MG TAB PO PRN (21:30)
[2024-11-18] MEDS: VENLAFAXINE HCL 37.5mg XR cap PO SCH (21:37)
[2024-11-19] VITALS (11 sets, daily range): BP systolic 107–159; BP diastolic 63–82; PULSE 84–97; RESP 17–19; TEMP 97.5–97.8; O2SAT 92–99
[2024-11-19 07:32] LABS: Iron 26.0 ug/dL (50-170)
[2024-11-19 07:33] LABS: Alanine Aminotransferase 17 U/L (7-40); Albumin 3.8 g/dL (3.2-4.8); Alkaline Phosphatase 91 U/L (46-116); Anion Gap 13 (5-15); BUN/Creatinine Ratio 7.1 (10.0-20.0); Calcium 9.4 mg/dL (8.7-10.4); Carbon Dioxide 24 mmol/L (20-31); Chloride 101 mmol/L (98-107); Sodium 138 mmol/L (136-145); Total Protein 7.4 g/dL (5.7-8.2)
[2024-11-19 07:34] LABS: Bilirubin, Total 1.6 mg/dL (0.2-1.0); Blood Urea Nitrogen 8 mg/dL (9-23); Glucose 111 mg/dL (74-106); Potassium 3.1 mmol/L (3.5-5.1); Total Iron Binding Capacity 333.0 ug/dL (250-425)
[2024-11-19 07:35] LABS: Nucleated Red Blood Cells % 0.1 %
[2024-11-19 07:42] LABS: Hematocrit 28.5 % (36.0-46.0); Hemoglobin 9.2 g/dL (12.2-16.2); Mean Corpuscular Hemoglobin 26.7 pg (28.0-32.0); Mean Corpuscular Volume 83.1 fL (80.0-100.0)
[2024-11-19] MEDS: PANTOPRAZOLE 40 MG/10 ML VIAL INJ IV SCH (08:39)
--- NOTE | 2024-11-19 08:46 | DVHPN2 ---
Progress Note Date Seen: Nov 19, 2024 Medical Necessity Reason Pt with a Central, PICC or Fol: No Subjective Patient reports: No new complaints Review of Systems: HEENT:Normal, CVS:Normal, RESPIRATORY:Normal, GI:Normal, :Normal, MSK:Normal, NEURO:Normal Objective vital signs Vital Sign Date Time Temp Pulse Resp B/P (MAP) Pulse Ox O2 Delivery O2 Flow Rate FiO2 11/19/24 05:00 97.8 84 18 142/82 (102) 95 97.8 11/18/24 20:15 Room Air 0.0 11/18/24 20:15 21 Total Intake and Output 11/18/24 11/18/24 11/19/24 15:00 23:00 07:00 Intake Total 100 ml 50 ml 1440 ml Output Total 200 ml 150 ml Balance -100 ml -100 ml 1440 ml medications Current Medications Medications Dose Ordered Sig/Fara Route Start Time Stop Time Status Last Admin Dose Admin Hydromorphone HCl 1 mg Q3HPRN PRN IV 11/18/24 11:15 Acetaminophen/ Codeine Phosphate 1 tab Q4HP PRN PO 11/18/24 11:15 11/19/24 04:41 1 TAB Hydralazine HCl 10 mg Q6HP PRN IV 11/18/24 12:30 11/18/24 12:40 10 MG Nitroglycerin 0.4 mg Q5MINP PRN SL 11/18/24 12:30 Morphine Sulfate 2 mg Q30M PRN IV 11/18/24 12:30 Potassium Chloride/Dextrose/ Sod Cl 1,000 ml @ 75 mls/hr [id number] IV 11/18/24 13:00 11/19/24 04:40 75 MLS/HR Alprazolam 0.25 mg Q8HP PRN PO 11/18/24 13:00 11/18/24 21:30 0.25 MG Venlafaxine HCl 37.5 mg BID PO 11/18/24 22:00 Quetiapine Fumarate 200 mg HS PO 11/18/24 22:00 11/18/24 21:30 200 MG Pantoprazole Sodium 40 mg DAILY IV 11/19/24 10:00 Cefazolin Sodium 50 ml @ 100 mls/hr Q8HR IV 11/18/24 14:00 11/19/24 05:29 100 MLS/HR Valsartan 80 mg DAILY PO 11/19/24 10:00 Hydralazine HCl 10 mg Q6HP PRN IV 11/18/24 13:00 Albuterol 2.5 mg Q4HPRN PRN NEB 11/18/24 13:15 Ondansetron HCl 4 mg Q6HPRN PRN IV 11/18/24 20:45 11/18/24 20:55 4 MG Examination: GENERAL:Normal, HEENT:Normal, NECK:Normal, LUNGS:Normal, CVS:Normal, ABDOMEN:Normal, ABDOMEN:Abnormal (primo drain), MSK:Normal, MSK:Abnormal (edema+), SKIN:Normal, NEURO:Normal, :Normal laboratory and microbiology Laboratory Tests 11/19/24 06:39 Test 11/19/24 06:39 Range/Units Serum Glucose 111 H 74-106 mg/dL Problem List/Assessment/Plan Problem List/Assessment/Plan * Morbid obesity. * Hypertension for which she will continue on Diovan. * Likely left leg cellulitis for which she will be placed on IV Ancef and a Doppler will be obtained. * Hypertension. * Anxiety/depression. * Anemia: iron def, iv iron * Status post laparoscopic cholecystectomy for cholelithiasis and chronic cholecystitis for which she will be placed on pain medications and IV fluids. Plan discussed with: Patient My Orders My Orders Orders - REBECCA MCCLURE MD Procedure Category Date Status Time Hydralazine Injection PHA 11/18/24 In Process (Apresoline Inject 12:30 Admit ADMIT 11/18/24 Transmitted 12:23 Oxygen By Nasal RT 11/18/24 Transmitted Cannula 12:23 Nitroglycerin PHA 11/18/24 In Process Sublingual (Ntrostat 12:30 Morphine Sulfate PHA 11/18/24 In Process Injection 12:30 Stat Ekg For Chest XIOMARA 11/18/24 In Process Pain 12:23 Notify Md Of Changes XIOMARA 11/18/24 In Process From Base 12:23 D5w/Sod Chl 0.45%/Kcl PHA 11/18/24 In Process 20meq 13:00 Alprazolam Tablet PHA 11/18/24 In Process (Xanax Tablet) 13:00 Venlafaxine Xr PHA 11/18/24 In Process (Effexor Xr) 22:00 Quetiapine Fumarate PHA 11/18/24 In Process Tablet (Seroquel Tab 22:00 Pantoprazole PHA 11/19/24 In Process (Protonix) 10:00 Lt Lower Dvt US 11/18/24 Resulted 12:56 Cefazolin 1gm/50ml PHA 11/18/24 In Process (Ancef) 14:00 Valsartan (Diovan) PHA 11/19/24 In Process 10:00 Hydralazine Injection PHA 11/18/24 In Process (Apresoline Inject 13:00 Albuterol Medneb PHA 11/18/24 In Process (Ventolin Medneb) 13:15 * Wound Consult CONS 11/18/24 Transmitted Hydrocodone-Acet PHA 11/19/24 Verified 5/325mg Tab ([place] 08:45 Furosemide Injection PHA 11/19/24 Verified (Lasix Injection) 08:45 Iron Ivpb PHA 11/19/24 Verified 12:00 Potassium Er Tablet PHA 11/19/24 Verified (Klor-Con Tablet) 08:45 Complete Blood Count LAB 11/20/24 Verified 06:00 Comprehensive LAB 11/20/24 Verified Metabolic Panel 06:00 Date of Service: Nov 19, 2024 Billing Provider: REBECCA MCCLURE MD Common Visit Codes: [id number] INP/OBS CARE(HIGH) REBECCA MCCLURE MD Nov 19, 2024 08:46
[2024-11-19] MEDS: VALSARTAN 80 MG TAB PO SCH (10:36)
[2024-11-19] MEDS: FUROSEMIDE 20 MG/2 ML VIAL IV ONE (11:19)
[2024-11-19] MEDS: POTASSIUM CHL 20 Meq TABLET PO ONE (11:26)
--- NOTE | 2024-11-19 11:42 | DVHPN2 ---
Progress Note Date Seen: Nov 19, 2024 Medical Necessity Reason Pt with a Central, PICC or Fol: No Objective vital signs Vital Sign Date Time Temp Pulse Resp B/P (MAP) Pulse Ox O2 Delivery O2 Flow Rate FiO2 11/19/24 10:36 144/82 11/19/24 09:08 99 Room Air* 0 21 11/19/24 09:00 97.7 84 18 97.7 Total Intake and Output 11/18/24 11/18/24 11/19/24 15:00 23:00 07:00 Intake Total 100 ml 50 ml 1440 ml Output Total 200 ml 150 ml Balance -100 ml -100 ml 1440 ml medications Current Medications Medications Dose Ordered Sig/Fara Route Start Time Stop Time Status Last Admin Dose Admin Hydromorphone HCl 1 mg Q3HPRN PRN IV 11/18/24 11:15 Nitroglycerin 0.4 mg Q5MINP PRN SL 11/18/24 12:30 Morphine Sulfate 2 mg Q30M PRN IV 11/18/24 12:30 Alprazolam 0.25 mg Q8HP PRN PO 11/18/24 13:00 11/18/24 21:30 0.25 MG Venlafaxine HCl 37.5 mg BID PO 11/18/24 22:00 11/19/24 08:40 37.5 MG Quetiapine Fumarate 200 mg HS PO 11/18/24 22:00 11/18/24 21:30 200 MG Pantoprazole Sodium 40 mg DAILY IV 11/19/24 10:00 11/19/24 08:39 40 MG Cefazolin Sodium 50 ml @ 100 mls/hr Q8HR IV 11/18/24 14:00 11/19/24 05:29 100 MLS/HR Valsartan 80 mg DAILY PO 11/19/24 10:00 11/19/24 10:36 80 MG Hydralazine HCl 10 mg Q6HP PRN IV 11/18/24 13:00 Albuterol 2.5 mg Q4HPRN PRN NEB 11/18/24 13:15 Ondansetron HCl 4 mg Q6HPRN PRN IV 11/18/24 20:45 11/19/24 08:40 4 MG Acetaminophen/ Hydrocodone Bitart 1 tab Q6HPRN PRN PO 11/19/24 08:45 Iron Sucrose 110 ml @ 110 mls/hr DAILY@1200 IV 11/19/24 12:00 11/23/24 12:59 laboratory and microbiology Laboratory Tests 11/19/24 06:39 Test 11/19/24 06:39 Range/Units Serum Glucose 111 H 74-106 mg/dL Problem List/Assessment/Plan Problem List/Assessment/Plan 11/19/24 NAUSEATED, WOUNDS OK ABDOMEN APPROPRIATELY TENDER,. LABS OK, WILL KEEP TILL TOMORROW Plan discussed with: Patient KRISTEN GUADARRAMA MD Nov 19, 2024 11:42
[2024-11-19] MEDS: IRON SUCROSE COMPLEX 110 ML IV SCH (12:23)
[2024-11-19] MEDS: HYDROcodone-ACET 5/325MG TAB PO PRN (12:32)
[2024-11-20 04:38] LABS: Hematocrit 28.1 % (36.0-46.0); Hemoglobin 9.0 g/dL (12.2-16.2); Mean Corpuscular Hemoglobin 26.8 pg (28.0-32.0); Mean Corpuscular Volume 84.0 fL (80.0-100.0); Nucleated Red Blood Cells % 0.1 %
[2024-11-20 05:00] VITALS: BP 152/83; PULSE 96; RESP 18; TEMP 97.8; O2SAT 92
[2024-11-20 05:02] LABS: Alanine Aminotransferase 17 U/L (7-40); Albumin 3.6 g/dL (3.2-4.8); Alkaline Phosphatase 97 U/L (46-116); Anion Gap 13 (5-15); BUN/Creatinine Ratio 4.9 (10.0-20.0); Bilirubin, Total 1.4 mg/dL (0.2-1.0); Blood Urea Nitrogen 5 mg/dL (9-23); Calcium 9.3 mg/dL (8.7-10.4); Carbon Dioxide 23 mmol/L (20-31); Chloride 103 mmol/L (98-107); Glucose 88 mg/dL (74-106); Potassium 3.5 mmol/L (3.5-5.1); Sodium 139 mmol/L (136-145); Total Protein 7.0 g/dL (5.7-8.2)
[2024-11-20] MEDS: hydrALAZINE HCL 20 MG/ML VL IV PRN (06:24)
--- NOTE | 2024-11-20 07:59 | ECG ---
[facility] Test Date: 2024-11-18 Test Time: 09:57:13 Pat Name: CINTHIA HAYDEN Department: Room: 0206 A Gender: F Inter Com Installer: DEEPA : 1970 Requested By: KRISTEN GUADARRAMA Order Number: [id number] Reading MD: Irving Romero Measurements Intervals Moran Rate: 94 P: 33 DC: 140 QRS: 12 QRSD: 60 T: 24 QT: 388 QTc: 485 Interpretive Statements Normal sinus rhythm Low voltage QRS Nonspecific ST and T wave abnormality Prolonged QT Electronically Signed On 11-24-2024 21:34:56 PDT by Irving Romero Please click the below link to view image of tracing.
[2024-11-20 08:13] VITALS: RESP 18; O2SAT 97
[2024-11-20 08:30] VITALS: O2SAT 97
[2024-11-20 09:00] VITALS: BP 143/78; PULSE 91; RESP 16; TEMP 98.1; O2SAT 94
[2024-11-20] MEDS ORDERED: CEPH500C PO (10:40)
[2024-11-20] MEDS ORDERED: HYDR-4902 PO (10:40)
--- NOTE | 2024-11-20 10:47 | DVHDS2 ---
Discharge Summary Date of Admission Nov 18, 2024 at 12:23 Date of Discharge: Nov 20, 2024 Labs/Diagnostic Data: Laboratory Results Test 11/20/24 04:26 11/19/24 06:39 11/16/24 14:35 White Blood Count 4.7 10^3/uL (4.4-10.8) Red Blood Count 3.35 10^6/uL (4.0-5.20) Hemoglobin 9.0 g/dL (12.2-16.2) Hematocrit 28.1 % (36.0-46.0) Mean Corpuscular Volume 84.0 fL (80.0-100.0) Mean Corpuscular Hemoglobin 26.8 pg (28.0-32.0) Mean Corpuscular Hemoglobin Concent 31.9 g/dL (32.0-36.0) Red Cell Distribution Width 17.6 % (11.8-14.3) Platelet Count 180 10^3/uL (140-450) Mean Platelet Volume 7.5 fL (6.9-10.8) Neutrophils (%) (Auto) 65.2 % (37.0-80.0) Lymphocytes (%) (Auto) 18.6 % (10.0-50.0) Monocytes (%) (Auto) 11.5 % (0.0-12.0) Eosinophils (%) (Auto) 4.0 % (0.0-7.0) Basophils (%) (Auto) 0.7 % (0.0-2.0) Neutrophils # (Auto) 3.1 10 ^3/uL (1.6-8.6) Lymphocytes # (Auto) 0.9 10 ^3/uL (0.4-5.4) Monocytes # (Auto) 0.5 10 ^3/uL (0-1.3) Eosinophils # (Auto) 0.2 10 ^3/uL (0-0.8) Basophils # (Auto) 0 10 ^3/uL (0-0.2) Nucleated Red Blood Cells 0.1 % Sodium Level 139 mmol/L (136-145) Potassium Level 3.5 mmol/L (3.5-5.1) Chloride Level 103 mmol/L (98-107) Carbon Dioxide Level 23 mmol/L (20-31) Anion Gap 13 (5-15) Blood Urea Nitrogen 5 mg/dL (9-23) Creatinine 1.03 mg/dL (0.550-1.02) Glomerular Filtration Rate Calc 64 mL/min (>90) BUN/Creatinine Ratio 4.9 (10.0-20.0) Serum Glucose 88 mg/dL (74-106) Calcium Level 9.3 mg/dL (8.7-10.4) Total Bilirubin 1.4 mg/dL (0.2-1.0) Aspartate Amino Transferase (AST) 56 U/L (13-40) Alanine Aminotransferase (ALT) 17 U/L (7-40) Alkaline Phosphatase 97 U/L (46-116) Total Protein 7.0 g/dL (5.7-8.2) Albumin 3.6 g/dL (3.2-4.8) Iron Level 26 ug/dL (50-170) Total Iron Binding Capacity 333 ug/dL (250-425) Percent Iron Saturation 7.8 % (15-50) Ferritin 20.0 ng/mL (10-291) Vitamin B12 Level 504 pg/mL (211-911) Thyroid Stimulating Hormone (TSH) 1.65 uIU/mL (0.55-4.78) Prothrombin Time 12.4 sec (9.3-11.8) Prothrombin Time INR 1.19 (0.9-1.15) Activated Partial Thromboplast Time 27.7 SEC (24.5-34.5) Urine Color Yellow (Yellow) Urine Clarity Turbid (Clear) Urine pH 6.5 (5.0-9.0) Urine Specific [place] 1.007 (1.001-1.035) Urine Protein Trace (Negative) Urine Ketones Negative (Negative) Urine Blood Negative /uL (Negative) Urine Nitrite Negative (Negative) Urine Bilirubin Negative (Negative) Urine Urobilinogen 4 mg/dL (Negative) Urine Leukocyte Esterase 1+ /uL (Negative) Urine RBC 1 /hpf (0 - 4) Urine Microscopic WBC 10 /HPF (0-5) Urine Squamous Epithelial Cells Mod /hpf (<5) Urine Bacteria Few /hpf (None Seen) Urine Glucose Normal mg/dL (Normal) Other Laboratory Tests 11/20/24 04:26 Brief Hx & Hospital Course: HISTORY OF PRESENT ILLNESS: The patient is a 54-year-old lady who is admitted after she underwent laparoscopic cholecystectomy for cholelithiasis and chronic cholecystitis. The patient at this time denies any significant pain. No history of chest pain, no shortness of breath, no nausea or vomiting. Course of hospitalization: Patient was continued on antibiotic therapy with Rocephin, for postop antibiotic as well as lower extremity cellulitis. Patient was restarted on her home medications for comorbidities. Patient continues to have serosanguineous drainage from CHARLES, for which she will be discharged home with. Patient will have follow up with PCP in 1-2 weeks as well as surgeon in 1-2 weeks. She is instructed not to lift anything greater than 5 lb. Currently she is tolerating a full liquid diet, told to advance as tolerated. She will continue all previous home medications. Antibiotic therapy we will be continued with Keflex 500 mg p.o. 4 times a day for seven days. For pain, patient will be prescribed [place] 5/325 q.8 hours as needed for [id number] pain. Patient was agreeable with discharge plan. All questions answered. Physical examination General: Alert and Oriented x3. No acute distress. Well-nourished. Eyes: EOMI. Anicteric. HENT: Moist mucous membranes. Lungs: Clear to auscultation bilaterally. No accessory muscle use. Cardiovascular: Regular rate and rhythm. No murmur. No JVD. Abdomen: Soft, non-tender and non-distended. No palpable masses. Extremities: No edema. Non-tender. Skin: No rashes or lesions. Warm. Neurologic: No focal neurological deficits. CN II-XII grossly intact, but not individually tested. Psychiatric: Cooperative. Appropriate mood and affect. Total time spent with patient discussing and formulating plan of care: 35 minutes. This medical document was created using an electronic medical record system with [employer] dictation system. Although this document has been carefully reviewed, there may still be some phonetic and typographical errors. These areas are purely typographical due to imperfections of the software programs, and do not reflect any compromise in the patient's medical care. Consults/Reason for consult Surgery: Cholecystitis Operations or Procedures 11/18/2024: Laparoscopic cholecystectomy Condition at Discharge: Fair Final Diagnosis/Problems List Chronic cholelithiasis, status post cholecystectomy Secondary diagnosis: Anemia Cellulitis of lower extremity Obesity Anxiety/depression Primary hypertension Discharge Disposition: Home Discharge Instruct/Medications Diet: Cardiac 2g Na,low cholest Activity: No Restrictions, As Tolerated Follow Up/Referral: Follow up with Dr. Perez in 1-2 weeks Follow up with Dr. Rubin in one week Medications: [place] 5/325 q.8 hours as needed for [id number] pain Keflex 500 mg p.o. 4 times a day x7 days Scheduled Albuterol Sulfate (Ventolin Mdi), 90 MCG IN PRN, (Reported) Cephalexin Monohydrate (Cephalexin), 1 CAP PO QID Fluticasone-Salmeterol (Advair Diskus 250/50), 1 PUFF IN BID, (Reported) Omeprazole (Prilosec Susp (For Gt)), 20 MG PO DAILY, (Reported) Pantoprazole Sodium Sesquihydr (Protonix), 40 MG PO DAILY, (Reported) Quetiapine Fumerate (Seroquel Xr), 100 MG PO HS, (Reported) Valsartan (Diovan), 80 MG PO DAILY, (Reported) Scheduled PRN Hydrocodone-Acetaminophen (Hydrocodone Bitartrate/AC 5-325 mg), 1 TAB PO Q8HR PRN 36 Discharge Statement: "Patient was advised to return to the ER or call 911 if any headaches, dizziness, shortness of breath, chest pain, abdominal pain, bleeding, fevers, or worsening of medical condition. Patient was counseled about treatment plan, medications, possible side effects, patientverbalized understanding. All questions were answered to the best of my ability. This discharge took greater then 30 minutes in planning, reviewing documentation, counseling the patient, and discussing with other team members." ASSESSMENT ASSESSMENT Assessment Chronic cholelithiasis, status post cholecystectomy Date of Service: Nov 20, 2024 Billing Provider: ARIELLE ROBERTO NP Common Visit Codes: 45047-JUY/OBS DISCH DAY >30min ARIELLE ROBERTO NP Nov 20, 2024 10:47
[2024-11-20 11:06] VITALS: BP 143/78; TEMP 36.7
[2024-11-20 13:00] VITALS: BP 145/81; PULSE 91; RESP 18; TEMP 98.1; O2SAT 96
== END 2024-11-20 13:30 | disposition home or self-care (01) | DRG 418 ==
LOC: EEVIPCON → SUR 07:47 → OVERFLOW 12:23 → CENTRAL 16:42
PROVIDERS: ADMIT Nurse Practitioner Acute Care; ATTEND Nurse Practitioner Acute Care
PROC: 0FT44ZZ Resection of Gallbladder, Percutaneous Endoscopic Approach (ICD-10-PCS; principal; 2024-11-18 10:12)
DX: K80.10 Calculus of gallbladder with chronic cholecystitis without obstruction (principal); L03.116 Cellulitis of left lower limb; Z68.41 Body mass index [BMI] 40.0-44.9, adult; K74.60 Unspecified cirrhosis of liver; I10 Essential (primary) hypertension; J45.909 Unspecified asthma, uncomplicated; E66.01 Morbid (severe) obesity due to excess calories; D64.9 Anemia, unspecified; K76.0 Fatty (change of) liver, not elsewhere classified; F32.A Depression, unspecified; K21.9 Gastro-esophageal reflux disease without esophagitis; F41.9 Anxiety disorder, unspecified; K66.0 Peritoneal adhesions (postprocedural) (postinfection); Z88.0 Allergy status to penicillin; Z91.040 Latex allergy status; Z90.49 Acquired absence of other specified parts of digestive tract
CPT/HCPCS: 36415; 80053; 81001; 82607; 82728; 83540; 83550; 84443; 85025; 85610; 85730; 86850; 86900; 86901; 93005; 93971; G0378; J0131; J1100; J1756; J1885; J1956; J2003; J2250; J2405; J2470; J2704; J3490

== ENCOUNTER 2024-12-02 15:09 | Inpatient (IN) | payer BC, OTHER ==
[~2024-12-02] VITALS: Ht 175.3 cm; Wt 113.5 kg
[2024-12-02] MEDS: SODIUM CHLORIDE 0.9% 1,000 ML IV SCH (00:55)
[~2024-12-02 15:09] MED LIST changes: +CEPH500C PO; +HYDR-4902 PO
--- NOTE | 2024-12-02 15:38 | ED.PDOC ---
History of Present Illness HPI Comments 54F BIBA w/ prior MHx of HTN, Asthma, Anemia, Blood Transfusion 1 year ago and the c/c of gen weak. EMS report that the pt fell on her butt from the bed onto carpet, and was unable to get up from the ground for 15 minutes. Daughter called EMS and when they arrived on scene the pt stated that she is able to ambulate but is unable to. Denies chills, fever, N/V/D, SOB, CP. Denies any other associated symptom's, modifiers, or recent injuries or sick contact at this time. Chief Complaint: General Weakness Time Seen by MD: 15:30 Reviewed Notes: Nurses Notes, Medications, Allergies Allergies: Coded Allergies: Latex (Verified Allergy, Unknown, 12/02/24) Penicillins (Verified Allergy, Unknown, 12/02/24) Information Source: Patient Mode of Arrival: EMS Severity: Moderate Timing: Minutes Duration: Since onset, Minutes Prehospital treatment: None Past Medical History PAST MEDICAL HISTORY: Anemia, Asthma, HTN Past Medical History (Other): blood transfusion 1 year ago Surgical History: Denies all surgeries SHIPPING CHECKER History: No Pertinent SHIPPING CHECKER History Family History Family History: Reviewed,noncontributory to illness, Unknown Social History Smoker: Non-Smoker Alcohol: Denies ETOH Use Drugs: Denies Drug Use Lives In: Home Constitutional: reports: fatigue, malaise, weakness; denies: chills, di aphoresis, fever, sweats, others EENTM: denies: blurred vision, double vision, ear bleeding, ear discharge, ear drainage, ear pain, ear ringing, eye pain, eye redness, hearing loss, mouth pain, mouth swelling, nasal discharge, nose bleeding, nose congestion, nose pain, photophobia, tearing, throat pain, throat swelling, voice changes, others Respiratory: denies: cough, hemoptysis, orthopnea, SOB at rest, shortness of breath, SOB with excertion, stridor, wheezing, others Cardiovascular: denies: chest pain, dizzy spells, diaphoresis, Dyspnea on exertion, edema, irregular heart beat, left arm pain, lightheadedness, palpitations, PND, syncope, others Gastrointestinal: denies: abdomen distended, abdominal pain, blood streaked bowels, constipated, diarrhea, dysphagia, difficulty swallowing, hematemesis, melena, nausea, poor appetite, poor fluid intake, rectal bleeding, rectal pain, vomiting, others Genitourinary: denies: abnormal vagina bleeding, burning, dyspareunia, dysuria, flank pain, frequency, hematuria, incontinence, pain, , vagina discharge, urgency, others Neurological: denies: dizziness, fainting, headache, left sided numbness, left sided weakness, numbness, paresthesia, pre-existing deficit, right sided numbness, right sided weakness, seizure, speech problems, tingling, tremors, weakness, others Musculoskeletal: denies: back pain, gout, joint pain, joint swelling, muscle pain, muscle stiffness, neck pain, others Integumetry: denies: bruises, change in color, change in hair/nails, dryness, laceration, lesions, lumps, rash, wounds, others Allergic/Immunocompromised: denies: Difficulty Healing, Frequent Infections, Hives, Itching, others Hematologic/Lymphatic: denies: anemia, blood clots, easy bleeding, easy bruising, swollen glands, others Endocrine: denies: excessive hunger, excessive sweating, excessive thirst, excessive urination, flushing, intolerance to cold, intolerance to heat, unexp lained weight gain, unexplained weight loss, others Psychiatric: denies: anxiety, bipolar disorder, depression, hopeless, panic disorder, schizophrenia, sleepless, suicidal, others All Other Systems: Reviewed and Negative Physical Exam General Appearance: Mild Distress, Normal HEENT: Normal ENT Inspection, Pharynx Normal, TMs Normal Neck: Full Range of Motion, Non-Tender, Normal, Normal Inspection Respiratory: Chest Non-Tender, Lungs Clear, No Accessory Muscle Use, No Respiratory Distress, Normal Breath Sounds Cardiovascular: No Edema, No JVD, No Murmur, No Gallop, Normal Peripheral Pulses, Regular Rate/Rhythm Breast Exam: Deferred Gastrointestinal: No Organomegaly, Non Tender, No Pulsatile Mass, Normal Bowel Sounds, Soft Genitalia: Deferred Pelvic: Deferred Rectal: Deferred Extremities: No calf tenderness, Normal capillary refill, Normal inspection, Normal range of motion, Non-tender, No pedal edema Musculoskeletal : Apperance: Normal Neurologic: Alert, returned goods receiving clerk II-XII nml as Tested, No Motor Deficits, Normal Affect, Normal Mood, No Sensory Deficits Cerebellar Function: Normal Reflexes: Normal Skin: Dry, Normal Color, Warm Lymphatic: No Adenopathy Was a procedure done? Was a procedure done?: No Differential Dx Considerations may include: UTI, postsurgical complications, hypotension, anemia, TIA, CVA X-Ray, Labs, Meds, VS Vital Signs Date Time Temp Pulse Resp B/P (MAP) Pulse Ox O2 Delivery O2 Flow Rate FiO2 12/02/24 17:30 98.2 83 9 133/70 (91) 94 98.2 12/02/24 15:42 116 13 93 Nasal Cannula* 2 28 12/02/24 15:42 116 13 107/70 (82) 93 12/02/24 15:18 97.7 92 16 110/71 97 97.7 Lab Test 12/02/24 17:41 12/02/24 15:43 Range/Units Lactic Acid Level Pending 3.2 *H 0.4-2.0 mmol/L White Blood Count 6.7 4.4-10.8 10^3/uL Red Blood Count 3.87 L 4.0-5.20 10^6/uL Hemoglobin 10.2 L 12.2-16.2 g/dL Hematocrit 32.0 L 36.0-46.0 % Mean Corpuscular Volume 82.5 80.0-100.0 fL Mean Corpuscular Hemoglobin 26.2 L 28.0-32.0 pg Mean Corpuscular Hemoglobin Concent 31.8 L 32.0-36.0 g/dL Red Cell Distribution Width 16.7 H 11.8-14.3 % Platelet Count 204 140-450 10^3/uL Mean Platelet Volume 8.0 6.9-10.8 fL Neutrophils (%) (Auto) 69.2 37.0-80.0 % Lymphocytes (%) (Auto) 16.7 10.0-50.0 % Monocytes (%) (Auto) 8.5 0.0-12.0 % Eosinophils (%) (Auto) 4.6 0.0-7.0 % Basophils (%) (Auto) 1.0 0.0-2.0 % Neutrophils # (Auto) 4.6 1.6-8.6 10 ^3/uL Lymphocytes # (Auto) 1.1 0.4-5.4 10 ^3/uL Monocytes # (Auto) 0.6 0-1.3 10 ^3/uL Eosinophils # (Auto) 0.3 0-0.8 10 ^3/uL Basophils # (Auto) 0.1 0-0.2 10 ^3/uL Nucleated Red Blood Cells 0.2 % Sodium Level 136 136-145 mmol/L Potassium Level 3.2 L 3.5-5.1 mmol/L Chloride Level 99 98-107 mmol/L Carbon Dioxide Level 24 20-31 mmol/L Anion Gap 13 5-15 Blood Urea Nitrogen 10 9-23 mg/dL Creatinine 0.99 0.550-1.02 mg/dL Glomerular Filtration Rate Calc 67 >90 mL/min BUN/Creatinine Ratio 10.1 10.0-20.0 Serum Glucose 117 H 74-106 mg/dL Calcium Level 8.9 8.7-10.4 mg/dL Total Bilirubin 1.0 0.2-1.0 mg/dL Aspartate Amino Transferase (AST) 71 H 13-40 U/L Alanine Aminotransferase (ALT) 26 7-40 U/L Alkaline Phosphatase 141 H 46-116 U/L Total Protein 7.5 5.7-8.2 g/dL Albumin 3.8 3.2-4.8 g/dL Lipase 63 H 12-53 U/L Current Medications Medications (Trade) Dose Ordered Sig/Fara Route Start Time Stop Time Status Last Admin Sodium Chloride 1,000 ml @ 1,000 mls/hr Q1H ONCE IV 12/02/24 17:00 12/02/24 17:59 DC 12/02/24 17:09 Vancomycin HCl 250 ml @ 250 mls/hr ONCE ONCE IV 12/02/24 17:00 12/02/24 17:59 DC 12/02/24 17:50 X-Ray, Labs, Meds, VS Comment Patient will be admitted for hypotension and syncopal episode Concerns of possible sepsis due to UTI versus postsurgical complications Patient is started on vancomycin Time of 1ST Reevaluation: 16:00 Reevaluation 1ST: Unchanged Patient Education/Counseling: Diagnosis, Treatment, Prognosis Family Education/Counseling: No Family Present SEPSIS Sepsis Screen Date sepsis recognized/suspect: Dec 02, 2024 Time Sepsis recognized/suspect: 1509 Recent Procedure: No On Antibiotic Therapy: No Respiratory Rate >20: No Heart Rate >90: No Temp<36 C (96.8 F) or >38.3 C: No SBP <90 or MAP <65 mmHG: No New Acute Mental Status Change: No Is the patient on CPAP, BIPAP,: No Physician Orders Head Without Contrast (12/02/24 15:34) Urinalysis (12/02/24 15:34) Chest Xray 1 View (12/02/24 15:34) Blood Culture (12/02/24 16:53) Vital Signs Date Time Temp Pulse Resp B/P (MAP) Pulse Ox O2 Delivery O2 Flow Rate FiO2 12/02/24 17:30 98.2 83 9 133/70 (91) 94 98.2 12/02/24 15:42 116 13 93 Nasal Cannula* 2 28 12/02/24 15:42 116 13 107/70 (82) 93 12/02/24 15:18 97.7 92 16 110/71 97 97.7 Laboratory Tests Test 12/02/24 15:43 12/02/24 17:41 Lactic Acid Level 3.2 mmol/L (0.4-2.0) *H Pending White Blood Count 6.7 10^3/uL (4.4-10.8) Medications Medications Dose Ordered Sig/Fara Route Start Time Stop Time Status Last Admin Dose Admin Sodium Chloride 1,000 ml @ 1,000 mls/hr Q1H ONCE IV 12/02/24 17:00 12/02/24 17:59 DC 12/02/24 17:09 Vancomycin HCl 250 ml @ 250 mls/hr ONCE ONCE IV 12/02/24 17:00 12/02/24 17:59 DC 12/02/24 17:50 Departure 1 Departure Time of Disposition: 18:45 Impression: Primary Impression: Syncopal episodes Qualified Codes: R55 - Syncope and collapse Additional Impressions: Lactic acidosis Generalized weakness Disposition: ADMITTED INPATIENT Condition: Guarded Critical Care Note Critical Care Time?: No Stability Stability form required: No Heart Score Heart Score: Heart Score Response (Comments) Value History N/A 0 EKG N/A 0 Age N/A 0 Risk Factors N/A 0 Troponin N/A 0 Total 0 I personally scribed for STEFANIE BAI ([email or web address]) on 12/02/24 at 15:38. Electronically submitted by Denys Lee ([email or web address]). STEFANIE BAI Dec 02, 2024 15:38
[2024-12-02 15:42] VITALS: PULSE 116; RESP 13; O2SAT 93
[2024-12-02 16:08] LABS: Alanine Aminotransferase 26 U/L (7-40); Albumin 3.8 g/dL (3.2-4.8); Anion Gap 13 (5-15); BUN/Creatinine Ratio 10.1 (10.0-20.0); Blood Urea Nitrogen 10 mg/dL (9-23); Calcium 8.9 mg/dL (8.7-10.4); Carbon Dioxide 24 mmol/L (20-31); Chloride 99 mmol/L (98-107); Sodium 136 mmol/L (136-145); Total Protein 7.5 g/dL (5.7-8.2)
[2024-12-02 16:09] LABS: Bilirubin, Total 1.0 mg/dL (0.2-1.0)
[2024-12-02 16:10] LABS: Alkaline Phosphatase 141 U/L (46-116); Glucose 117 mg/dL (74-106); Lipase 63 U/L (12-53); Potassium 3.2 mmol/L (3.5-5.1)
[2024-12-02 16:13] LABS: Lactic Acid w/Reflex 3.2 mmol/L (0.4-2.0)
[2024-12-02 16:14] LABS: Hemoglobin 10.2 g/dL (12.2-16.2)
[2024-12-02 16:15] LABS: Hematocrit 32.0 % (36.0-46.0); Mean Corpuscular Hemoglobin 26.2 pg (28.0-32.0); Mean Corpuscular Volume 82.5 fL (80.0-100.0); Nucleated Red Blood Cells % 0.2 %
--- NOTE | 2024-12-02 16:18 | DVH ---
EXAM: XY CHEST XRAY 1 VIEW HISTORY: gen weak COMPARISON: None TECHNIQUE: Portable upright AP view of the chest was performed. FINDINGS: No pneumothorax, consolidative infiltrates, or pulmonary edema. The heart is enlarged. There is abun dant overlying adipose tissue. IMPRESSION: 1. No acute intrathoracic process. 2. Cardiomegaly and Obesity.
--- NOTE | 2024-12-02 16:31 | DVH ---
EXAM: CT HEAD WITHOUT CONTRAST HISTORY: gen weak COMPARISON: None TECHNIQUE: Noncontrast axial CT images of the head were performed. Sagittal and coronal reformatted i mages were obtained. This CT exam was performed using 1 or more of the following dose reduction techn iques: Automated exposure control, adjustment of the mA and/or kv according to patient size, or the u se of iterative reconstruction techniques. Radiation Dose: CTDI volume is 57.48 mGy. Dose-length product is 1034.6 mGy*cm FINDINGS: No intracranial hemorrhage, mass, midline shift, hydrocephalus, or evidence of acute large vessel inf arct. There is a prominent perivascular space along the caudal margin of the left basal ganglia. Ther e is mild decreased attenuation in the bilateral basal ganglia, greater on the left. There is mild ce rebellar tonsillar ectopia without evidence of Chiari I malformation. There are bilateral zane bull sophie. There are mucous retention cysts in the bilateral ethmoid air cells.. The bilateral mastoid air cells and middle ear spaces are clear. No cranial fracture or scalp edema. IMPRESSION: 1. Chronic ischemic changes without evidence of acute intracranial process. 2. Mild ethmoid sinus disease.
[2024-12-02] MEDS: SODIUM CHLORIDE 0.9% 1,000 ML IV ONE (17:09)
[2024-12-02] MEDS: VANCOMYCIN 1GM/250ML KIT 250 ML IV ONE (17:50)
[2024-12-02 19:29] LABS: Urine Budding Yeast OCCASIONAL /hpf (None Seen); Urine Protein, UAD Negative (Negative)
[2024-12-02 19:30] VITALS: PULSE 88; RESP 16; O2SAT 96
--- NOTE | 2024-12-02 20:56 | DVHHPRES ---
History of Present Illness Resident Creating Document: AN JACOBO RESIDENT History of Present Illness This is a 54-year-old female with past medical history of hypertension, right RCC s/p nephrectomy, GERD, depression, anxiety, chronic cholecystitis s/p cholecystectomy, CHARLES drain in place, presented to the ER with chief complaint of mechanical fall with no loss of consciousness and generalized weakness. She reported walking in her bedroom when she fell and could not get up, she denies tripping or hitting head. Her daughter called EMS and she was brought to the ER. Previous hospitalization: In October 2024 for cholecystectomy, CHARLES drain still in place PMHx: Hypertension, right RCC s/p nephrectomy, GERD, depression, anxiety, chronic cholecystitis s/p cholecystectomy, CHARLES drain in place PSHx: Cholecystectomy, right nephrectomy, lumpectomy, tubal ligation, tonsillectomy Social history: Denies smoking, alcohol, recreational drug use. Lives in home with family. Full code, next to kin is Home medication: Pepcid, flexor, valsartan, Seroquel, Xanax Allergic history: Latex, penicillin The patient was examined at bedside today. Vitals show tachycardia, saturating 93-96% at 2 L oxygen, patient is admitted for further evaluation and management. Review of Systems Review of Systems ROS: Constitutional: Denies weight loss, fever and chills. HEENT: Denies changes in vision and hearing. Respiratory: Denies shortness of breath and cough Cardiovascular: Denies chest discomfort or palpitations GI: Denies abdominal pain, nausea, vomiting and diarrhea. : Denies dysuria and urinary frequency. Musculoskeletal: Denies myalgias and joint pain Skin: Denies rash and pruritus. Neurological: Denies dizziness, headache, vision or hearing problems Allergies: Coded Allergies: Latex (Verified Allergy, Unknown, 12/02/24) Penicillins (Verified Allergy, Unknown, 12/02/24) Exam Vital Signs Vital Signs Date Time Temp Pulse Resp B/P (MAP) Pulse Ox O2 Delivery O2 Flow Rate FiO2 12/02/24 19:00 98.1 88 19 168/91 (116) 96 98.1 12/02/24 15:42 Nasal Cannula* 2 28 Exam General: Patient alert and oriented in person, place and time. Patient following commands. HEENT: Normocephalic, atraumatic, moist mucous membranes Respiratory/pulmonary: Clear lungs bilaterally, vesicular murmurs present in almost all lung loving, no associated crackles or wheezes. Cardiovascular: Normal heart sounds S1 and S2 with no associated murmurs Abdomen: Laparoscopy incision sites healing with scabbing, no erythema or discharge seen. CHARLES drain in place with abundant serous-sanguineous debit, incision site without any signs of local inflammatory changes. Extremities: Swelling bilateral lower limbs. Left lower leg: Erythema, elevated temperature and 1+ pitting edema extending from ankle to mid calf. Peripheral Pulses: 3+ Radial (R). 3+ Radial (L). 3+ Dorsalis pedis (R). 3+ Dorsalis pedis(L) Skin: No rashes or pruritus, there is no sacral edema present at this time. Neurological: Intact cranial nerves with no focal neurologic deficits Labs/Xrays Labs Test 12/02/24 17:41 12/02/24 17:24 12/02/24 15:43 Range/Units Lactic Acid Level 3.2 *H 0.4-2.0 mmol/L Urine Color Light-yellow Yellow Urine Clarity Turbid H Clear Urine pH 5.5 5.0-9.0 Urine Specific Kidder 1.006 1.001-1.035 Urine Protein Negative Negative Urine Ketones Negative Negative Urine Blood 2+ H Negative /uL Urine Nitrite Negative Negative Urine Bilirubin Negative Negative Urine Urobilinogen Normal Negative mg/dL Urine Leukocyte Esterase 1+ Negative /uL Urine RBC 9 0 - 4 /hpf Urine Microscopic WBC 3 0-5 /HPF Urine Squamous Epithelial Cells Mod <5 /hpf Urine Bacteria None seen None Seen /hpf Urine Mucus Few None Seen Urine Yeast (Budding) Occasional None Seen /hpf Urine Glucose Normal Normal mg/dL White Blood Count 6.7 4.4-10.8 10^3/uL Red Blood Count 3.87 L 4.0-5.20 10^6/uL Hemoglobin 10.2 L 12.2-16.2 g/dL Hematocrit 32.0 L 36.0-46.0 % Mean Corpuscular Volume 82.5 80.0-100.0 fL Mean Corpuscular Hemoglobin 26.2 L 28.0-32.0 pg Mean Corpuscular Hemoglobin Concent 31.8 L 32.0-36.0 g/dL Red Cell Distribution Width 16.7 H 11.8-14.3 % Platelet Count 204 140-450 10^3/uL Mean Platelet Volume 8.0 6.9-10.8 fL Neutrophils (%) (Auto) 69.2 37.0-80.0 % Lymphocytes (%) (Auto) 16.7 10.0-50.0 % Monocytes (%) (Auto) 8.5 0.0-12.0 % Eosinophils (%) (Auto) 4.6 0.0-7.0 % Basophils (%) (Auto) 1.0 0.0-2.0 % Neutrophils # (Auto) 4.6 1.6-8.6 10 ^3/uL Lymphocytes # (Auto) 1.1 0.4-5.4 10 ^3/uL Monocytes # (Auto) 0.6 0-1.3 10 ^3/uL Eosinophils # (Auto) 0.3 0-0.8 10 ^3/uL Basophils # (Auto) 0.1 0-0.2 10 ^3/uL Nucleated Red Blood Cells 0.2 % Sodium Level 136 136-145 mmol/L Potassium Level 3.2 L 3.5-5.1 mmol/L Chloride Level 99 98-107 mmol/L Carbon Dioxide Level 24 20-31 mmol/L Anion Gap 13 5-15 Blood Urea Nitrogen 10 9-23 mg/dL Creatinine 0.99 0.550-1.02 mg/dL Glomerular Filtration Rate Calc 67 >90 mL/min BUN/Creatinine Ratio 10.1 10.0-20.0 Serum Glucose 117 H 74-106 mg/dL Calcium Level 8.9 8.7-10.4 mg/dL Total Bilirubin 1.0 0.2-1.0 mg/dL Aspartate Amino Transferase (AST) 71 H 13-40 U/L Alanine Aminotransferase (ALT) 26 7-40 U/L Alkaline Phosphatase 141 H 46-116 U/L Total Protein 7.5 5.7-8.2 g/dL Albumin 3.8 3.2-4.8 g/dL Lipase 63 H 12-53 U/L SEPSIS Sepsis Screen Date sepsis recognized/suspect: Dec 02, 2024 Time Sepsis recognized/suspect: 1509 Recent Procedure: No On Antibiotic Therapy: No Respiratory Rate >20: No Heart Rate >90: No Temp<36 C (96.8 F) or >38.3 C: No SBP <90 or MAP <65 mmHG: No New Acute Mental Status Change: No Is the patient on CPAP, BIPAP,: No Physician Orders Head Without Contrast (12/02/24 15:34) Chest Xray 1 View (12/02/24 15:34) Blood Culture (12/02/24 16:53) Vital Signs Date Time Temp Pulse Resp B/P (MAP) Pulse Ox O2 Delivery O2 Flow Rate FiO2 12/02/24 19:00 98.1 88 19 168/91 (116) 96 98.1 12/02/24 17:30 98.2 83 9 133/70 (91) 94 98.2 12/02/24 15:42 116 13 93 Nasal Cannula* 2 28 12/02/24 15:42 116 13 107/70 (82) 93 12/02/24 15:18 97.7 92 16 110/71 97 97.7 Laboratory Tests Test 12/02/24 15:43 12/02/24 17:41 Lactic Acid Level 3.2 mmol/L (0.4-2.0) *H 3.2 mmol/L (0.4-2.0) *H White Blood Count 6.7 10^3/uL (4.4-10.8) Medications Medications Dose Ordered Sig/Fara Route Start Time Stop Time Status Last Admin Dose Admin Sodium Chloride 1,000 ml @ 1,000 mls/hr Q1H ONCE IV 12/02/24 17:00 12/02/24 17:59 DC 12/02/24 17:09 1,000 MLS/HR Vancomycin HCl 250 ml @ 250 mls/hr ONCE ONCE IV 12/02/24 17:00 12/02/24 17:59 DC 12/02/24 17:50 250 MLS/HR Assessment/Plan Assessment/Plan Acute respiratory failure Questionable congestive heart failure Rule out pulmonary embolism Patient is tachycardic, presented presyncope, in respiratory failure and elevated D-dimer. Planning on ruling out pulmonary embolism. Avoid Angio CT of chest due to history of nephrectomy. Ordered V/Q scan Currently on oxygen therapy at 2 L/min Completed echocardiogram on 08/2024 which showed LVEF of 60%, normal right ventricular function Ordered BNP and troponin Complicated UTI History of Renal cell carcinoma status post right nephrectomy U/A: positive for UTI. Labs show lactic acidosis Blood culture, urine culture, MRSA ordered Started on IV cefepime, vancomycin ordered Avoiding nephrotoxins like NSAIDS, contrast Low salt diet, maintain hydration Repeat BMP Left leg Cellulitis Rule out DVT Started on IV vancomycin, cefepime D-dimer, lower limb Doppler ordered Hypokalemia Supplemented, repeat potassium Iron-deficiency Anemia Hemoglobin 10.2 Ferrous sulfate ordered Hypertension Valsartan 80 mg daily Depression, anxiety Continue Seroquel, Xanax Status post cholecystectomy, Adan-Zhang drain in place History of chronic cholecystitis Liver cirrhosis Wound culture ordered Right upper quadrant ultrasound ordered, evaluate for surgical consultation Morbid obesity Hypercholesteremia BMI 46 Counseled on lifestyle and diet ASCVD 12%, statin indicated, started atorvastatin 40 mg daily DIET: Cardiac diet DVT PROPHYLAXIS: Lovenox GI PROPHYLAXIS: Protonix CODE STATUS: Goals of care discussed with patient at bedside for more than 35 minutes. Full code DISPOSITION: Med/surge Patient's status and plan discussed with the patient. Case discussed with Dr. Gillespie Plan discussed with: Patient, Other (Nurses) Date of Service: Dec 02, 2024 Billing Provider: ELEANOR GILLESPIE MD Common Visit Codes: [id number] INP/OBS CARE (HIGH) Secondary Visit Codes: [id number] CARE PLAN 30 MINUTES AN JACOBO RESIDENT Dec 02, 2024 20:56 COREY OVALLE RESIDENT Dec 03, 2024 06:11
[2024-12-02] MEDS: POTASSIUM EFFERVESENT TAB 25 MEQ PO ONE (21:19)
[2024-12-02 22:01] LABS: Benzodiazephine Screen, Urine Neg (NEGATIVE)
[2024-12-02 22:02] LABS: Phencyclidine Screen, Urine Neg (NEGATIVE)
[2024-12-02 22:02] LABS: Magnesium 1.9 mg/dL (1.6-2.6)
[2024-12-02 22:05] LABS: Amphetamine Screen, Urine Neg (NEGATIVE); Barbiturate Scree,Urine Neg (NEGATIVE); Cannabinoid Screen, Urine Neg (NEGATIVE); Cocaine Screen, Urine Neg (NEGATIVE); Opiate Scree,Urine Neg (NEGATIVE)
[2024-12-02 22:05] LABS: Cholesterol 208.0 mg/dL (< 200); HDL Cholesterol 22.0 mg/dL (40-59); Potassium 3.4 mmol/L (3.5-5.1); Triglycerides 244.0 mg/dL (< 150)
[2024-12-02 22:26] LABS: INR 1.14 (0.9-1.15); Partial Thromboplastin Time 28.2 SEC (24.5-34.5); Prothrombin Time 11.9 sec (9.3-11.8)
[2024-12-02] MEDS ORDERED: VANCOMYCIN PER PHARMACY 0 MG IV SCH (23:30)
[2024-12-02] MEDS ORDERED: MORPHINE SULFATE INJ 2 MG/ml SYRG IV PRN (23:30)
[2024-12-02] MEDS ORDERED: ONDANSETRON HCL 4 MG/2 ML VIAL IV PRN (23:30)
[2024-12-02] MEDS ORDERED: ACETAMINOPHEN 325 MG TAB PO PRN (23:30)
[2024-12-02] MEDS: ALPRAZolam 0.25 MG TAB PO ONE (23:50)
[2024-12-02] MEDS: SODIUM CHLORIDE 0.9% 500 ML IV ONE (23:51)
[2024-12-02] MEDS: ENOXAPARIN SOD 40 MG/0.4 ML SYRINGE SC ONE (23:55)
--- NOTE | 2024-12-03 00:48 | DVH ---
Bilateral lower extremity venous duplex Clinical History: Swelling bilateral lower limb Comparison: US LT LOWER DVT on DOS: 11/18/24 Technique: Duplex Doppler evaluation of the deep venous systems of both lower extremities from the common femora l veins to the popliteal veins including color Doppler and spectral/pulsed waveform analysis was perf ormed. Findings: RIGHT SIDE: The common femoral vein demonstrates appropriate compressibility and waveform variability. There is compressibility/patency of the great saphenous vein at the proximal thigh. The femoral vein demonstrates appropriate compressibility and waveform variability. The deep femoral vein demonstrates appropriate compressibility and waveform variability. The popliteal vein demonstrates appropriate compressibility and waveform variability. There is normal compressibility at the tibioperoneal trunk. LEFT SIDE: The common femoral vein demonstrates appropriate compressibility and waveform variability. There is compressibility/patency of the great saphenous vein at the proximal thigh. The femoral vein demonstrates appropriate compressibility and waveform variability. The deep femoral vein demonstrates appropriate compressibility and waveform variability. The popliteal vein demonstrates appropriate compressibility and waveform variability. The posterior tibial vein is not well visualized/assessed. Impression: No evidence of DVT within the assessed lower extremities.
--- NOTE | 2024-12-03 01:48 | DVH ---
INDICATION: Rule out fluid collection in right upper quadrant TECHNIQUE: Multiple real-time sonographic images were obtained of the hepatobiliary system. COMPARISON: US LIVER on DOS: 05/12/24 FINDINGS: Hepatic echogenicity is normal. The liver measures 18.1 cm. The common duct is not visualized. The gallbladder is not visualized and reportedly surgically absent. The right kidney is reportedly surgically absent. No visualized ascites. IMPRESSION: 1. No visualized ascites or fluid collection.
[2024-12-03 04:45] LABS: Hematocrit 32.7 % (36.0-46.0); Hemoglobin 10.4 g/dL (12.2-16.2); Mean Corpuscular Hemoglobin 26.7 pg (28.0-32.0); Mean Corpuscular Volume 83.5 fL (80.0-100.0); Nucleated Red Blood Cells % 0.0 %
[2024-12-03 04:57] LABS: Alanine Aminotransferase 26 U/L (7-40); Albumin 3.9 g/dL (3.2-4.8); Anion Gap 14 (5-15); BUN/Creatinine Ratio 7.4 (10.0-20.0); Calcium 9.2 mg/dL (8.7-10.4); Carbon Dioxide 22 mmol/L (20-31); Chloride 101 mmol/L (98-107); Potassium 3.7 mmol/L (3.5-5.1); Sodium 137 mmol/L (136-145); Total Protein 7.9 g/dL (5.7-8.2)
[2024-12-03 05:11] LABS: Alkaline Phosphatase 150 U/L (46-116); Bilirubin, Total 1.4 mg/dL (0.2-1.0); Blood Urea Nitrogen 6 mg/dL (9-23); Glucose 126 mg/dL (74-106); Lipase 61 U/L (12-53)
[2024-12-03 05:33] VITALS: RESP 18
[2024-12-03] MEDS: FERROUS SULFATE 325mg EC TAB PO SCH ×2 (06:03→10:33)
[2024-12-03] MEDS: CEFEPIME 1GM/50ML 50 ML IV SCH ×2 (06:03→14:41)
[2024-12-03] MEDS: PANTOPRAZOLE 40 MG TAB PO SCH (06:03)
[2024-12-03 09:15] VITALS: BP 179/94; PULSE 94; RESP 16; TEMP 97.8; O2SAT 98
[2024-12-03] MEDS ORDERED: ACETAMINOPHEN 325 MG TAB PO PRN ×2 (09:45→10:15)
[2024-12-03] MEDS: ALPRAZolam 0.25 MG TAB PO SCH ×2 (09:56→21:50)
--- NOTE | 2024-12-03 09:57 | DVH ---
Procedure: CT CT ANGIO CHEST CONTRAST Reason for study/Clinical History: Rule out PE (syncope and SOB, elevated D-dimer) Comparison Study: XY CHEST XRAY 1 VIEW on DOS: 12/02/24, XY CHEST TWO VIEWS ROUTINE on DOS: 11/16/24, C T CT ANGIO CHEST CONTRAST on DOS: 04/15/24, XY CHEST TWO VIEWS ROUTINE on DOS: 04/08/24, CHEST TWO VIEW S ROUTINE on DOS: 04/11/22 Exam Date: 12/03/2024 06:[address] Angio Chest with Contrast TECHNIQUE: Multiple axial CT images of chest was performed following intravenous contrast administrat ion and coronal reformatting was performed. 3-D/MIP images were obtained. Radiation Dose : CTDI volume is 29.6 mGy. Dose-length product is 2349.54 mGy*cm FINDINGS: Pulmonary Arteries: There are no filling defects within main, lobar, segmental and visualized subsegm ental branch pulmonary arteries. There is normal dimensional of main PA. Lungs: There is no peripheral pulmonary infarction, consolidation, pleural effusion, or right heart strain. There is no pneumothorax or pneumomediastinum. Aorta and Vasculature: There is normal caliber of thoracic aorta without evidence of aortic dissecti on, intramural hematoma or aneurysm. Lymph Nodes: There is no significant intrathoracic or axillary lymphadenopathy on CT size criteria. Lower Neck: Visualized portions of the thyroid gland are unremarkable. Mediastinum: Heart size is normal. There is no pericardial effusion. The esophagus is unremarkabl e. Musculoskeletal: No aggressive focal bony lesions, acute fractures or dislocation. Chest wall: Unremarkable Partially visualized upper abdomen is grossly unremarkable. IMPRESSION: No evidence of acute or chronic pulmonary embolism. END IMPRESSION: All CT scans at this medical facility are performed using dose modulation techniques as appropriate t o a performed exam including the following: Automated exposure control was utilized; adjustment of th e MA and/or KV according to patient size; and use of iterative reconstruction technique.
[2024-12-03] MEDS ORDERED: VANCOMYCIN PER PHARMACY 0 MG IV SCH ×2 (10:00→10:15)
[2024-12-03] MEDS ORDERED: MORPHINE SULFATE INJ 2 MG/ml SYRG IV PRN ×2 (10:00→10:15)
[2024-12-03] MEDS ORDERED: VANCOMYCIN 1.25GM/250ML 250 ML IV SCH (10:00)
[2024-12-03] MEDS ORDERED: SODIUM CHLORIDE 0.9% 1,000 ML IV SCH (10:00)
[2024-12-03] MEDS ORDERED: ENOXAPARIN SOD 40 MG/0.4 ML SYRINGE SC SCH (10:00)
[2024-12-03] MEDS ORDERED: VALSARTAN 80 MG TAB PO SCH ×2 (10:00)
[2024-12-03] MEDS ORDERED: ONDANSETRON HCL 4 MG/2 ML VIAL IV PRN ×2 (10:00→10:15)
[2024-12-03] MEDS: ENOXAPARIN SOD 40 MG/0.4 ML SYRINGE SC SCH (10:15)
[2024-12-03] MEDS: SODIUM CHLORIDE 0.9% 1,000 ML IV SCH ×2 (10:15→16:51)
[2024-12-03] MEDS: VALSARTAN 80 MG TAB PO SCH (10:16)
[2024-12-03] MEDS: VANCOMYCIN 1.25GM/250ML 250 ML IV SCH (10:33)
[2024-12-03] MEDS ORDERED: FERROUS SULFATE 325mg EC TAB PO SCH (11:30)
[2024-12-03 13:00] VITALS: BP 167/86; PULSE 91; RESP 16; TEMP 97.9; O2SAT 96
--- NOTE | 2024-12-03 13:24 | DVH ---
NUCLEAR MEDICINE VENTILATION/PERFUSION LUNG SCAN. INDICATION: PULMONARY EMBOLISM COMPARISON: CT CT ANGIO CHEST CONTRAST on DOS: 12/03/24, XY CHEST XRAY 1 VIEW on DOS: 12/02/24, XY CHES T TWO VIEWS ROUTINE on DOS: 11/16/24, CT CT ANGIO CHEST CONTRAST on DOS: 04/15/24, XY CHEST TWO VIEWS R OUTINE on DOS: 04/08/24 TECHNIQUE: Following intravenous demonstration of 6 millicuries of technetium 99m MAA, and inhalation of 40 mCi of tc 99m DTPA scintigrams were obtained in multiple projections of the lungs. FINDINGS: There is normal uptake of radionuclide on both the ventilation and perfusion portions of the examinat ion. No mismatched perfusion defects are demonstrated. Uptake is normally homogeneous. IMPRESSION: Low probability for PE.
[2024-12-03] MEDS ORDERED: CEFEPIME 1GM/50ML 50 ML IV SCH (14:00)
--- NOTE | 2024-12-03 15:17 | DVHPN2 ---
Progress Note Date Seen: Dec 03, 2024 Medical Necessity Reason Pt with a Central, PICC or Fol: No Subjective Patient reports: No new complaints Review of Systems: HEENT:Normal, CVS:Normal, RESPIRATORY:Normal, GI:Normal, :Normal, MSK:Normal, NEURO:Normal Objective vital signs Vital Sign Date Time Temp Pulse Resp B/P (MAP) Pulse Ox O2 Delivery O2 Flow Rate FiO2 12/03/24 10:16 179/94 12/03/24 09:15 97.8 94 16 98 97.8 12/03/24 05:33 Room Air* 0 21 Total Intake and Output 12/02/24 12/02/24 12/03/24 15:00 23:00 07:00 Intake Total 1250 ml 600 ml Balance 1250 ml 600 ml medications Current Medications Medications Dose Ordered Sig/Fara Route Start Time Stop Time Status Last Admin Dose Admin Acetaminophen 325 mg Q4HP PRN PO 12/03/24 10:15 Ondansetron HCl 4 mg Q4HP PRN IV 12/03/24 10:15 Morphine Sulfate 2 mg Q4HPRN PRN IV 12/03/24 10:15 Enoxaparin Sodium 40 mg DAILY SC 12/04/24 10:00 12/03/24 10:15 40 MG Quetiapine Fumarate 200 mg HS PO 12/03/24 22:00 Alprazolam 0.25 mg DAILY PO 12/04/24 10:00 Valsartan 80 mg DAILY PO 12/04/24 10:00 12/03/24 10:16 80 MG Sodium Chloride 1,000 ml @ 125 mls/hr Q8H IV 12/03/24 10:15 Vancomycin HCl 0 ml @ 0 mls/hr UD IV 12/03/24 10:15 Cefepime HCl 50 ml @ 12.5 mls/hr Q8HR IV 12/03/24 14:00 12/03/24 14:41 12.5 MLS/HR Ferrous Sulfate 325 mg AC PO 12/03/24 11:30 12/03/24 10:33 325 MG Pantoprazole Sodium 40 mg DAILY@0600 PO 12/04/24 06:00 Atorvastatin Calcium 40 mg HS PO 12/03/24 22:00 Vancomycin HCl 250 ml @ 200 mls/hr Q12H IV 12/03/24 10:15 12/03/24 10:33 200 MLS/HR Examination: GENERAL:Normal, HEENT:Normal, NECK:Normal, LUNGS:Normal, CVS:Normal, ABDOMEN:Normal, ABDOMEN:Abnormal (CHARLES DRAIN), MSK:Normal, SKIN:Normal, NEURO:Normal, :Normal laboratory and microbiology Laboratory Tests 12/03/24 03:36 Test 12/03/24 03:36 Range/Units Serum Glucose 126 H 74-106 mg/dL Problem List/Assessment/Plan Problem List/Assessment/Plan #1 syncopy: ivf, iv antibiotics #2 s/p lap shari #3 htn #4 obesity #5 anxiety #6 hyperlipidemia #7 transaminitis: cmp in am #8 anemia Plan discussed with: Patient Date of Service: Dec 03, 2024 Billing Provider: REBECCA MCCLURE MD Common Visit Codes: [id number] INP/OBS CARE(HIGH) REBECCA MCCLURE MD Dec 03, 2024 15:17
[2024-12-03 16:38] VITALS: BP 166/86; PULSE 92; RESP 18; TEMP 97.5; O2SAT 97
[2024-12-03] MEDS: IOHEXOL 350 MG/ML 100ML IJ ONE (16:51)
[2024-12-03 20:00] VITALS: PULSE 88; RESP 18; O2SAT 98
[2024-12-03] MEDS ORDERED: ALPRAZolam 0.25 MG TAB PO SCH (20:00)
[2024-12-03 21:00] VITALS: BP 159/81; PULSE 88; RESP 18; TEMP 97.5; O2SAT 98
[2024-12-03] MEDS: ATORVASTATIN 20 MG TAB PO SCH (21:51)
[2024-12-03] MEDS ORDERED: ATORVASTATIN 20 MG TAB PO SCH ×2 (22:00)
--- NOTE | 2024-12-03 22:50 | DVHINCON2 ---
Consultation - Surgical Date Seen: Dec 03, 2024 Referring Physician Reason for Consultation Brendon drain on the right upper quadrant after cholecystectomy History of Present Illness History of Present Illness Mrs. Judd is a 54-year-old female who presented to the hospital due to bc und level fall yesterday from which she could not get off the floor and she was also feeling very weak. I was consulted due to Brendon drain in the right upper quadrant with serosanguineous output. Patient underwent cholecystectomy with Dr. Perez on 11/18. Patient states that the drain has been putting out serosanguineous output since the surgery, and ranging between 50 and 100 per day. At the moment of my evaluation she had a proximally 45-50 mL in the drain. Denies fevers, chills, acholic stools, darkening of urine, changes in urinary or stooling habits. Denies any abdominal pain, or any right upper quadrant pain. Patient is tolerating diet without any issues. Past Medical/Surgical History Past Medical/Surgical History PMHx: Hypertension, right RCC s/p nephrectomy, GERD, depression, anxiety, chronic cholecystitis s/p cholecystectomy, CHARLES drain in place PSHx: Cholecystectomy, right nephrectomy, lumpectomy, tubal ligation, tonsillectomy Family and Social History Family and Social History Noncontributory Allergies and medications Allergies: Coded Allergies: Latex (Unverified Allergy, Unknown, 09/15/24) RASH Penicillins (Unverified Allergy, Unknown, 09/15/24) Home Meds Active Scripts Hydrocodone-Acetaminophen (Hydrocodone Bitartrate/AC 5-325 mg) 1 Tab Tab, 1 TAB PO Q8HR PRN for 7 Days, #21 TAB Prov:ARIELLE ROBERTO [employer] 11/20/24 Cephalexin Monohydrate (Cephalexin) 500 Mg Cap, 1 CAP PO QID for 7 Days, #28 CAP Prov:ARIELLE ROBERTO [employer] 11/20/24 Reported Medications Pantoprazole Sodium Sesquihydr (Protonix) 40 Mg Tab, 40 MG PO DAILY, #30 TAB 04/12/22 Albuterol Sulfate (VENTOLIN MDI) 90 Mcg Ih, 90 MCG IN PRN, INH 04/12/22 Fluticasone-Salmeterol (Advair Diskus 250/50) 1 Puff Ih, 1 PUFF IN BID, INH 04/12/22 Omeprazole (Prilosec Susp (For Gt)) 20 Mg Ss, 20 MG PO DAILY, ML 02/28/22 Valsartan (Diovan) 40 Mg Tab, 80 MG PO DAILY, TAB 02/28/22 Quetiapine Fumerate (Seroquel Xr) 50 Mg Tab, 100 MG PO HS, TAB 02/28/22 Review of systems Review of Systems: Deferred Examination Vital signs Vital Signs Date Time Temp Pulse Resp B/P (MAP) Pulse Ox O2 Delivery O2 Flow Rate FiO2 12/03/24 21:00 97.5 88 18 159/81 (107) 98 97.5 12/03/24 17:03 Room Air* 0 21 Medications Current Medications Medications (Trade) Dose Ordered Sig/Fara Route PRN Reason Start Time Stop Time Status Last Admin Acetaminophen (Tylenol Tablet) 325 mg Q4HP PRN PO MILD PAIN (1-3 PAIN SCALE) 12/02/24 23:30 12/03/24 09:47 DC Ondansetron HCl (Zofran) 4 mg Q4HP PRN IV NAUSEA / VOMITING 12/02/24 23:30 12/03/24 09:47 DC Morphine Sulfate 2 mg Q4HPRN PRN IV SEVERE PAIN (7-10 PAIN SCALE) 12/02/24 23:30 12/03/24 09:47 DC Enoxaparin Sodium (Lovenox) 40 mg DAILY SC 12/04/24 10:00 12/03/24 09:48 DC Quetiapine Fumarate (SEROquel TABLET) 200 mg HS PO 12/03/24 22:00 12/03/24 09:48 DC Alprazolam (Xanax Tablet) 0.25 mg DAILY PO 12/03/24 20:00 12/03/24 09:48 DC Valsartan (Diovan) 80 mg DAILY PO 12/03/24 10:00 12/03/24 09:48 DC Sodium Chloride 1,000 ml @ 125 mls/hr Q8H IV 12/02/24 23:30 12/03/24 09:48 DC 12/03/24 07:30 Vancomycin HCl 0 ml @ 0 mls/hr UD IV 12/02/24 23:30 12/03/24 09:48 DC Ceftriaxone Sodium 50 ml @ 100 mls/hr DAILY@09 IV 10/10/25 09:00 12/03/24 00:05 DC Cefepime HCl 50 ml @ 12.5 mls/hr Q8HR IV 12/03/24 06:00 12/03/24 09:49 DC 12/03/24 06:03 Ferrous Sulfate 325 mg AC PO 12/03/24 07:00 12/03/24 09:49 DC 12/03/24 06:03 Pantoprazole Sodium (Protonix Tablet) 40 mg DAILY@0600 PO 12/03/24 06:00 12/03/24 09:49 DC 12/03/24 06:03 Atorvastatin Calcium (Lipitor) 40 mg HS PO 12/03/24 22:00 12/03/24 09:49 DC Acetaminophen (Tylenol Tablet) 325 mg Q4HP PRN PO MILD PAIN (1-3 PAIN SCALE) 12/03/24 09:45 12/03/24 10:11 DC Ondansetron HCl (Zofran) 4 mg Q4HP PRN IV NAUSEA / VOMITING 12/03/24 10:00 12/03/24 10:11 DC Morphine Sulfate 2 mg Q4HPRN PRN IV SEVERE PAIN (7-10 PAIN SCALE) 12/03/24 10:00 12/03/24 10:12 DC Enoxaparin Sodium (Lovenox) 40 mg DAILY SC 12/03/24 10:00 12/03/24 10:12 DC Quetiapine Fumarate (SEROquel TABLET) 200 mg HS PO 12/03/24 22:00 12/03/24 10:12 DC Alprazolam (Xanax Tablet) 0.25 mg DAILY PO 12/03/24 10:00 12/03/24 10:12 DC Valsartan (Diovan) 80 mg DAILY PO 12/03/24 10:00 12/03/24 10:13 DC Sodium Chloride 1,000 ml @ 125 mls/hr Q8H IV 12/03/24 10:00 12/03/24 10:13 DC Vancomycin HCl 0 ml @ 0 mls/hr UD IV 12/03/24 10:00 12/03/24 10:13 DC Cefepime HCl 50 ml @ 12.5 mls/hr Q8HR IV 12/03/24 14:00 12/03/24 10:13 DC Ferrous Sulfate 325 mg AC PO 12/03/24 11:30 12/03/24 10:13 DC Pantoprazole Sodium (Protonix Tablet) 40 mg DAILY@0600 PO 12/04/24 06:00 12/03/24 10:14 DC Atorvastatin Calcium (Lipitor) 40 mg HS PO 12/03/24 22:00 12/03/24 10:14 DC Vancomycin HCl 250 ml @ 200 mls/hr Q12H IV 12/03/24 10:00 12/03/24 10:14 DC Acetaminophen (Tylenol Tablet) 325 mg Q4HP PRN PO MILD PAIN (1-3 PAIN SCALE) 12/03/24 10:15 Ondansetron HCl (Zofran) 4 mg Q4HP PRN IV NAUSEA / VOMITING 12/03/24 10:15 Morphine Sulfate 2 mg Q4HPRN PRN IV SEVERE PAIN (7-10 PAIN SCALE) 12/03/24 10:15 Enoxaparin Sodium (Lovenox) 40 mg DAILY SC 12/04/24 10:00 12/03/24 10:15 Quetiapine Fumarate (SEROquel TABLET) 200 mg HS PO 12/03/24 22:00 12/03/24 22:00 Alprazolam (Xanax Tablet) 0.25 mg HS PO 12/03/24 22:00 12/03/24 21:50 Valsartan (Diovan) 80 mg DAILY PO 12/04/24 10:00 12/03/24 10:16 Sodium Chloride 1,000 ml @ 125 mls/hr Q8H IV 12/03/24 10:15 12/03/24 15:15 DC Vancomycin HCl 0 ml @ 0 mls/hr UD IV 12/03/24 10:15 12/03/24 15:15 DC Cefepime HCl 50 ml @ 12.5 mls/hr Q8HR IV 12/03/24 14:00 12/03/24 21:50 Ferrous Sulfate 325 mg AC PO 12/03/24 11:30 12/03/24 17:51 Pantoprazole Sodium (Protonix Tablet) 40 mg DAILY@0600 PO 12/04/24 06:00 Atorvastatin Calcium (Lipitor) 40 mg HS PO 12/03/24 22:00 12/03/24 21:51 Vancomycin HCl 250 ml @ 200 mls/hr Q12H IV 12/03/24 10:15 12/03/24 15:15 DC 12/03/24 10:33 Sodium Chloride 1,000 ml @ 75 mls/hr [id number] IV 12/03/24 15:15 Laboratory Labs Test 12/03/24 03:36 12/02/24 21:30 12/02/24 17:24 12/02/24 15:43 Range/Units White Blood Count 6.3 4.4-10.8 10^3/uL Red Blood Count 3.91 L 4.0-5.20 10^6/uL Hemoglobin 10.4 L 12.2-16.2 g/dL Hematocrit 32.7 L 36.0-46.0 % Mean Corpuscular Volume 83.5 80.0-100.0 fL Mean Corpuscular Hemoglobin 26.7 L 28.0-32.0 pg Mean Corpuscular Hemoglobin Concent 32.0 32.0-36.0 g/dL Red Cell Distribution Width 17.0 H 11.8-14.3 % Platelet Count 166 140-450 10^3/uL Mean Platelet Volume 8.1 6.9-10.8 fL Neutrophils (%) (Auto) 80.1 H 37.0-80.0 % Lymphocytes (%) (Auto) 9.0 L 10.0-50.0 % Monocytes (%) (Auto) 7.9 0.0-12.0 % Eosinophils (%) (Auto) 2.5 0.0-7.0 % Basophils (%) (Auto) 0.5 0.0-2.0 % Neutrophils # (Auto) 5.0 1.6-8.6 10 ^3/uL Lymphocytes # (Auto) 0.6 0.4-5.4 10 ^3/uL Monocytes # (Auto) 0.5 0-1.3 10 ^3/uL Eosinophils # (Auto) 0.2 0-0.8 10 ^3/uL Basophils # (Auto) 0 0-0.2 10 ^3/uL Nucleated Red Blood Cells 0.0 % Sodium Level 137 136-145 mmol/L Potassium Level 3.7 3.5-5.1 mmol/L Chloride Level 101 98-107 mmol/L Carbon Dioxide Level 22 20-31 mmol/L Anion Gap 14 5-15 Blood Urea Nitrogen 6 L 9-23 mg/dL Creatinine 0.81 0.550-1.02 mg/dL Glomerular Filtration Rate Calc 85 >90 mL/min BUN/Creatinine Ratio 7.4 L 10.0-20.0 Serum Glucose 126 H 74-106 mg/dL Lactic Acid Level 1.8 0.4-2.0 mmol/L Calcium Level 9.2 8.7-10.4 mg/dL Total Bilirubin 1.4 H 0.2-1.0 mg/dL Aspartate Amino Transferase (AST) 73 H 13-40 U/L Alanine Aminotransferase (ALT) 26 7-40 U/L Alkaline Phosphatase 150 H 46-116 U/L Troponin I High Sensitivity < 3 L </=34 ng/L B-Type Natriuretic Peptide 37.33 0-100 pg/mL Total Protein 7.9 5.7-8.2 g/dL Albumin 3.9 3.2-4.8 g/dL Lipase 61 H 12-53 U/L Prothrombin Time 11.9 H 9.3-11.8 sec Prothrombin Time INR 1.14 0.9-1.15 Activated Partial Thromboplast Time 28.2 24.5-34.5 SEC D-Dimer, Quantitative 3.84 H 0.0-0.49 mg/L FEU Urine Color Light-yellow Yellow Urine Clarity Turbid H Clear Urine pH 5.5 5.0-9.0 Urine Specific [place] 1.006 1.001-1.035 Urine Protein Negative Negative Urine Ketones Negative Negative Urine Blood 2+ H Negative /uL Urine Nitrite Negative Negative Urine Bilirubin Negative Negative Urine Urobilinogen Normal Negative mg/dL Urine Leukocyte Esterase 1+ Negative /uL Urine RBC 9 0 - 4 /hpf Urine Microscopic WBC 3 0-5 /HPF Urine Squamous Epithelial Cells Mod <5 /hpf Urine Bacteria None seen None Seen /hpf Urine Mucus Few None Seen Urine Yeast (Budding) Occasional None Seen /hpf Urine Glucose Normal Normal mg/dL Urine Opiates Screen Neg NEGATIVE Urine Fentanyl Screen Neg NEGATIVE Urine Barbiturates Screen Neg NEGATIVE Urine Phencyclidine Screen Neg NEGATIVE Urine Amphetamines Screen Neg NEGATIVE Urine Benzodiazepines Screen Neg NEGATIVE Urine Cocaine Screen Neg NEGATIVE Urine Cannabinoids Screen Neg NEGATIVE Hemoglobin A1c 5.2 <5.7 % A1C Phosphorus Level 2.5 2.4-5.1 mg/dL Magnesium Level 1.9 1.6-2.6 mg/dL C-Reactive Protein High Sensitivity 0.55 <1.0 mg/dL Triglycerides Level 244 H < 150 mg/dL Cholesterol Level 208 H < 200 mg/dL LDL Cholesterol 155 H < 100 mg/dL HDL Cholesterol 22 L 40-59 mg/dL Vitamin B12 Level 572 211-911 pg/mL Vitamin D 25-Hydroxy 21.4 L 30.0-100 ng/mL Thyroid Stimulating Hormone (TSH) 2.86 0.55-4.78 uIU/mL Microbiology Date/Time Source Procedure Growth Status 12/03/24 00:40 Nose MRSA Screen - Final Complete 12/02/24 17:46 Blood Blood Culture - Preliminary NO GROWTH AFTER 24 HOURS OF INCUBATION. Resulted Examination: GENERAL:Normal, HEENT:Normal (No icterus), ABDOMEN:Normal (Nondistended, soft, depressible, incision sites without surrounding signs of infection, right flank drain with mostly serosanguineous output (a proximally 45-50 mL and drain), nontender) Problem List/Assessment/Plan Problems: (1) Status post laparoscopic cholecystectomy Assessment and Plan Mrs. Judd is a 54 year old female who fell yesterday and felt weak, and could not get off the floor. Decided to come to the ED today for further evaluation. I was called because of right upper quadrant Brendon drain that remains in place since surgery in November 18 with . Surgery was laparoscopic cholecystectomy. Drain still having moderate output to consider removal, but output has a appropriate color and consistency. Patient has a postsurgical appointment on 12/08, recommend leaving the drain in place until her appointment. Dr. Christianson was notified about the patient being in the hospital. I will sign off, please call with any questions or concerns. Plan discussed with Plan discussed with: Patient Visit Coding Surgery Date of Service if different f: Dec 03, 2024 Billing Provider: CIRILO FRENCH MD Surgery Visit Codes: [id number] - INP CONSULT <110 MIN CIRILO FRENCH MD Dec 03, 2024 22:50
[2024-12-04 01:00] VITALS: BP 122/70; PULSE 68; RESP 18; TEMP 97.8; O2SAT 99
[2024-12-04 01:15] LABS: COVID19 ANTIGEN SOFIA FIA NEGATIVE (NEGATIVE)
[2024-12-04 04:47] VITALS: BP 121/72; PULSE 91; RESP 18; TEMP 97.3; O2SAT 94
[2024-12-04] MEDS ORDERED: PANTOPRAZOLE 40 MG TAB PO SCH (06:00)
[2024-12-04] MEDS: PANTOPRAZOLE 40 MG TAB PO SCH (06:00)
[2024-12-04 06:24] LABS: Nucleated Red Blood Cells % 0.2 %
[2024-12-04 06:27] LABS: Hematocrit 31.0 % (36.0-46.0); Hemoglobin 10.0 g/dL (12.2-16.2); Mean Corpuscular Hemoglobin 26.5 pg (28.0-32.0); Mean Corpuscular Volume 82.0 fL (80.0-100.0)
[2024-12-04 06:43] LABS: Alanine Aminotransferase 22 U/L (7-40); Albumin 3.9 g/dL (3.2-4.8); Anion Gap 13 (5-15); BUN/Creatinine Ratio 7.9 (10.0-20.0); Calcium 9.4 mg/dL (8.7-10.4); Carbon Dioxide 27 mmol/L (20-31); Chloride 98 mmol/L (98-107); Glucose 102 mg/dL (74-106); Sodium 138 mmol/L (136-145); Total Protein 7.7 g/dL (5.7-8.2)
[2024-12-04 06:46] LABS: Alkaline Phosphatase 134 U/L (46-116); Bilirubin, Total 2.0 mg/dL (0.2-1.0); Blood Urea Nitrogen 7 mg/dL (9-23); Potassium 3.5 mmol/L (3.5-5.1)
[2024-12-04 06:55] LABS: Lactic Acid w/Reflex 2.3 mmol/L (0.4-2.0)
[2024-12-04 08:00] VITALS: PULSE 91; RESP 19
[2024-12-04 09:00] VITALS: BP 176/86; PULSE 91; RESP 19; TEMP 96.8; O2SAT 97
[2024-12-04] MEDS ORDERED: ENOXAPARIN SOD 40 MG/0.4 ML SYRINGE SC SCH (10:00)
[2024-12-04 13:00] VITALS: BP 132/80; PULSE 92; RESP 19; TEMP 97.5; O2SAT 96
--- NOTE | 2024-12-04 15:05 | DVHDS2 ---
Discharge Summary Date of Admission Dec 02, 2024 at 23:17 Date of Discharge: Dec 04, 2024 Admitting Diagnosis Acute respiratory failure Labs/Diagnostic Data: Laboratory Results Test 12/04/24 04:47 12/03/24 23:45 12/03/24 03:36 12/02/24 21:30 White Blood Count 5.2 10^3/uL (4.4-10.8) Red Blood Count 3.79 10^6/uL (4.0-5.20) Hemoglobin 10.0 g/dL (12.2-16.2) Hematocrit 31.0 % (36.0-46.0) Mean Corpuscular Volume 82.0 fL (80.0-100.0) Mean Corpuscular Hemoglobin 26.5 pg (28.0-32.0) Mean Corpuscular Hemoglobin Concent 32.4 g/dL (32.0-36.0) Red Cell Distribution Width 16.7 % (11.8-14.3) Platelet Count 177 10^3/uL (140-450) Mean Platelet Volume 7.8 fL (6.9-10.8) Neutrophils (%) (Auto) 62.0 % (37.0-80.0) Lymphocytes (%) (Auto) 22.4 % (10.0-50.0) Monocytes (%) (Auto) 7.6 % (0.0-12.0) Eosinophils (%) (Auto) 7.0 % (0.0-7.0) Basophils (%) (Auto) 1.0 % (0.0-2.0) Neutrophils # (Auto) 3.2 10 ^3/uL (1.6-8.6) Lymphocytes # (Auto) 1.2 10 ^3/uL (0.4-5.4) Monocytes # (Auto) 0.4 10 ^3/uL (0-1.3) Eosinophils # (Auto) 0.4 10 ^3/uL (0-0.8) Basophils # (Auto) 0.1 10 ^3/uL (0-0.2) Nucleated Red Blood Cells 0.2 % Sodium Level 138 mmol/L (136-145) Potassium Level 3.5 mmol/L (3.5-5.1) Chloride Level 98 mmol/L (98-107) Carbon Dioxide Level 27 mmol/L (20-31) Anion Gap 13 (5-15) Blood Urea Nitrogen 7 mg/dL (9-23) Creatinine 0.89 mg/dL (0.550-1.02) Glomerular Filtration Rate Calc 76 mL/min (>90) BUN/Creatinine Ratio 7.9 (10.0-20.0) Serum Glucose 102 mg/dL (74-106) Lactic Acid Level 2.3 mmol/L (0.4-2.0) Calcium Level 9.4 mg/dL (8.7-10.4) Total Bilirubin 2.0 mg/dL (0.2-1.0) Aspartate Amino Transferase (AST) 52 U/L (13-40) Alanine Aminotransferase (ALT) 22 U/L (7-40) Alkaline Phosphatase 134 U/L (46-116) Total Protein 7.7 g/dL (5.7-8.2) Albumin 3.9 g/dL (3.2-4.8) Influenza Type A Antigen Negative (Negative) Influenza Type B Antigen Negative (Negative) SARS-CoV-2 Antigen (Rapid) Negative (NEGATIVE) Troponin I High Sensitivity < 3 ng/L (</=34) B-Type Natriuretic Peptide 37.33 pg/mL (0-100) Lipase 61 U/L (12-53) Prothrombin Time 11.9 sec (9.3-11.8) Prothrombin Time INR 1.14 (0.9-1.15) Activated Partial Thromboplast Time 28.2 SEC (24.5-34.5) D-Dimer, Quantitative 3.84 mg/L FEU (0.0-0.49) Test 12/02/24 17:24 12/02/24 15:43 Urine Color Light-yellow (Yellow) Urine Clarity Turbid (Clear) Urine pH 5.5 (5.0-9.0) Urine Specific [place] 1.006 (1.001-1.035) Urine Protein Negative (Negative) Urine Ketones Negative (Negative) Urine Blood 2+ /uL (Negative) Urine Nitrite Negative (Negative) Urine Bilirubin Negative (Negative) Urine Urobilinogen Normal mg/dL (Negative) Urine Leukocyte Esterase 1+ /uL (Negative) Urine RBC 9 /hpf (0 - 4) Urine Microscopic WBC 3 /HPF (0-5) Urine Squamous Epithelial Cells Mod /hpf (<5) Urine Bacteria None seen /hpf (None Seen) Urine Mucus Few (None Seen) Urine Yeast (Budding) Occasional /hpf (None Urine Glucose Normal mg/dL (Normal) Urine Opiates Screen Neg (NEGATIVE) Urine Fentanyl Screen Neg (NEGATIVE) Urine Barbiturates Screen Neg (NEGATIVE) Urine Phencyclidine Screen Neg (NEGATIVE) Urine Amphetamines Screen Neg (NEGATIVE) Urine Benzodiazepines Screen Neg (NEGATIVE) Urine Cocaine Screen Neg (NEGATIVE) Urine Cannabinoids Screen Neg (NEGATIVE) Hemoglobin A1c 5.2 % A1C (<5.7) Phosphorus Level 2.5 mg/dL (2.4-5.1) Magnesium Level 1.9 mg/dL (1.6-2.6) C-Reactive Protein High Sensitivity 0.55 mg/dL (<1.0) Triglycerides Level 244 mg/dL (< 150) Cholesterol Level 208 mg/dL (< 200) LDL Cholesterol 155 mg/dL (< 100) HDL Cholesterol 22 mg/dL (40-59) Vitamin B12 Level 572 pg/mL (211-911) Vitamin D 25-Hydroxy 21.4 ng/mL (30.0-100) Thyroid Stimulating Hormone (TSH) 2.86 uIU/mL (0.55-4.78) Other Laboratory Tests 12/04/24 04:47 Brief Hx & Hospital Course: History of Present Illness This is a 54-year-old female with past medical history of hypertension, right RCC s/p nephrectomy, GERD, depression, anxiety, chronic cholecystitis s/p cholecystectomy, CHARLES drain in place, presented to the ER with chief complaint of mechanical fall with no loss of consciousness and generalized weakness. She reported walking in her bedroom when she fell and could not get up, she denies tripping or hitting head. Her daughter called EMS and she was brought to the ER. Course of hospitalization: Patient had both CT angiogram of the chest as well as V/Q scan which was negative for pulmonary embolism. Negative for DVTs. Patient has CT scan of the head negative for any acute pathology. Patient was given IV hydration, empiric antibiotic therapy. Surgical consultation was obtained regarding patient's increase CHARLES drainage output. No further recommendations were provided at this time, only to follow up with established appointment with Dr. Perez, surgeon on 12/08/2024. Patient is asymptomatic, ambulating without difficulty. Patient will be discharged home as instructed to follow up with the discharge Clinic in one week. All questions answered. Physical examination General: Alert and Oriented x3. No acute distress. Well-nourished. Obese Eyes: EOMI. Anicteric. HENT: Moist mucous membranes. Lungs: Clear to auscultation bilaterally. No accessory muscle use. Cardiovascular: Regular rate and rhythm. No murmur. No JVD. Abdomen: Soft, non-tender and non-distended. No palpable masses. CHARLES with serosanguineous fluid Extremities: No edema. Non-tender. Skin: No rashes or lesions. Warm. Neurologic: No focal neurological deficits. CN II-XII grossly intact, but not individually tested. Psychiatric: Cooperative. Appropriate mood and affect. Total time spent with patient discussing and formulating plan of care: 35 minutes. This medical document was created using an electronic medical record system with [employer] system. Although this document has been carefully reviewed, there may still be some phonetic and typographical errors. These areas are purely typographical due to imperfections of the software programs, and do not reflect any compromise in the patient's medical care. Consults/Reason for consult General surgery: Increase CHARLES output Condition at Discharge: Guarded Final Diagnosis/Problems List Syncope with Collapse Secondary diagnosis: Status post cholecystectomy Anxiety Pulmonary embolism ruled out Obesity Discharge Disposition: Home Discharge Instruct/Medications Diet: Regular Activity: No Restrictions, As Tolerated Follow Up/Referral: Follow up with DC clinic in 1 week Follow up with Dr. Perez Scheduled appointment on 12/08/2024 Medications: Continue all previous home medication Scheduled Albuterol Sulfate (Ventolin Mdi), 90 MCG IN PRN, (Reported) Cephalexin Monohydrate (Cephalexin), 1 CAP PO QID Fluticasone-Salmeterol (Advair Diskus 250/50), 1 PUFF IN BID, (Reported) Omeprazole (Prilosec Susp (For Gt)), 20 MG PO DAILY, (Reported) Pantoprazole Sodium Sesquihydr (Protonix), 40 MG PO DAILY, (Reported) Quetiapine Fumerate (Seroquel Xr), 100 MG PO HS, (Reported) Valsartan (Diovan), 80 MG PO DAILY, (Reported) Scheduled PRN Hydrocodone-Acetaminophen (Hydrocodone Bitartrate/AC 5-325 mg), 1 TAB PO Q8HR PRN 36 Discharge Statement: "Patient was advised to return to the ER or call 911 if any headaches, dizziness, shortness of breath, chest pain, abdominal pain, bleeding, fevers, or worsening of medical condition. Patient was counseled about treatment plan, medications, possible side effects, patientverbalized understanding. All questions were answered to the best of my ability. This discharge took greater then 30 minutes in planning, reviewing documentation, counseling the patient, and discussing with other team members." ASSESSMENT ASSESSMENT Assessment Syncope with Collapse Date of Service: Dec 04, 2024 Billing Provider: ARIELLE ROBERTO NP Common Visit Codes: 39183-IFP/OBS DISCH DAY >30min ARIELLE ROBERTO NP Dec 04, 2024 15:04
--- NOTE | 2024-12-04 16:26 | DVH ---
CLINICAL HISTORY: ELEVATED LFTS TECHNIQUE: CT of the abdomen and pelvis was performed without intravenous contrast. This exam was per formed according to our departmental dose optimization program. Up-to-date CT equipment and radiation dose reduction techniques are utilized as appropriate. 27.88 CTDI: 27.88 DLP: 1504.91 WID: COMPARISON: None FINDINGS: Lower Thorax: Unremarkable. Liver and Biliary system: Hepatomegaly measuring 19 cm craniocaudal. Nodular contour of the liver. No definite hepatic lesion. There Is a right abdominal approach drain which terminates along the unders urface of the left lobe of the liver. Prior cholecystectomy. No biliary ductal dilatation. Spleen: Splenomegaly. Adrenal Glands and Kidneys: Tiny right adrenal gland myelolipoma. Otherwise unremarkable adrenal glan ds. Prior right nephrectomy. There is small amount of contrast excretion in the left renal collecting system. No left hydronephrosis or nephrolithiasis. Pancreas and Retroperitoneum: Fatty infiltration of the pancreas. No retroperitoneal lymphadenopathy. Aorta and Major Vessels: Aortoiliac vessels are normal in caliber. There is trace calcified plaque in the abdominal aorta. Bowel, Mesentery and Peritoneal space: Normal caliber small and large bowel. There is moderate distal colonic diverticulosis. Normal appendix. No free air or fluid collection. Pelvis: There is contrast excretion into the urinary bladder. The uterus and ovaries are atrophic alt marcelo grossly unremarkable. There is no pelvic lymphadenopathy. Abdominal wall and Osseous Structures: There are fat containing bilateral inguinal hernias. Multileve l lower thoracic and lumbar spondylosis. IMPRESSION: 1. Hepatosplenomegaly and nodular contour of the liver which could be fibrosis or cirrhosis. 2. Prior right nephrectomy. 3. Moderate distal colonic diverticulosis.
[2024-12-04 17:00] VITALS: BP 153/83; PULSE 93; RESP 19; TEMP 97.7; O2SAT 93
== END 2024-12-04 18:12 | disposition home or self-care (01) | DRG 312 ==
LOC: ER 15:09 → EDUNIT# 23:17 → OVERFLOW 23:17 → CENTRAL 12-03 16:40
PROVIDERS: ADMIT Nurse Practitioner Acute Care; ATTEND Nurse Practitioner Acute Care
DX: R55 Syncope and collapse (principal); J96.00 Acute respiratory failure, unspecified whether with hypoxia or hypercapnia; N39.0 Urinary tract infection, site not specified; E87.20 Acidosis, unspecified; Z68.42 Body mass index [BMI] 45.0-49.9, adult; L03.116 Cellulitis of left lower limb; E87.6 Hypokalemia; I10 Essential (primary) hypertension; J45.909 Unspecified asthma, uncomplicated; K21.9 Gastro-esophageal reflux disease without esophagitis; F32.A Depression, unspecified; D50.9 Iron deficiency anemia, unspecified; F41.9 Anxiety disorder, unspecified; K74.60 Unspecified cirrhosis of liver; E78.00 Pure hypercholesterolemia, unspecified; E66.01 Morbid (severe) obesity due to excess calories; R74.01 Elevation of levels of liver transaminase levels; Z88.0 Allergy status to penicillin; Z91.040 Latex allergy status; Z90.49 Acquired absence of other specified parts of digestive tract; Z90.5 Acquired absence of kidney; Z79.899 Other long term (current) drug therapy; Z68.37 Body mass index [BMI] 37.0-37.9, adult
CPT/HCPCS: 36415; 70450; 71045; 71275; 74176; 76705; 78582; 80053; 80061; 80307; 81001; 82306; 82607; 83036; 83605; 83690; 83735; 83880; 84100; 84132; 84443; 84484; 85025; 85379; 85610; 85730; 86141; 87040; 87077; 87081; 87086; 87186; 87205; 87426; 87804; 93970; 96365; 96372; G0378